=== PATIENT | female | born 1995 | race Caucasian/White ===

== ENCOUNTER 2021-04-04 09:09 | Emergency (ER) | payer OTHER, SELFPAY ==
[2021-04-04 09:21] VITALS: BP 107/68; PULSE 86; RESP 16; TEMP 37; O2SAT 99
--- NOTE | 2021-04-04 09:33 | ED.URI ---
HPI - URI/Sore Throat General Chief Complaint: Upper Respiratory Infection Stated Complaint: Sore Throat Time Seen by Provider: 04/04/21 09:33 Source: patient Mode of arrival: ambulatory Limitations: no limitations History of Present Illness HPI Narrative: Kiel Pugh is a 25 yo female no PMH who comes to [facility] with complaints of sore throat x2 days. She states she has had strep throat multiple times in the past and feels for similar. She has a feeling of ears being clogged bilaterally; denies smoking Related Data Allergies Allergy/AdvReac Type Severity Reaction Status Date / Time No Known Allergies Allergy Verified 04/04/21 09:39 Review of Systems Review of Systems: CONSTITUTIONAL: Denies fever, chills, sweats. EYES: Denies visual changes, redness, discharge. ENT: Denies rhinorrhea, mild congestion, has sore throat, but o otalgia. CARDIOVASCULAR: Denies chest pain, palpitations, edema. RESPIRATORY: Denies dyspnea, wheezing, cough GASTROINTESTINAL: Denies abdominal pain, nausea, vomiting, diarrhea. GENITOURINARY: Denies dysuria, hematuria, abnormal discharge SKIN: Denies rash or itching. NEUROLOGIC: Denies numbness, or focal weakness. PSYCHIATRIC: Denies anxiety or depression. [facility] Past Medical History Medical History No acute medical problems Family History Family History Other No acute medical problems Social History Social History (Updated 04/04/21 @ 09:35 by Lesa Ballesteros CNP) Smoking status: Never smoker Alcohol intake: current Exam Narrative: GENERAL: This is a well-nourished, well-developed patient, in mild distress. HEAD: normocephalic, atraumatic. EYES: Sclera clear/white. Vision is grossly intact. EARS: External ears normal, auditory canals erythema with bulging tympanic membranes from fluid. Hearing grossly intact. NOSE: External nose normal without nasal discharge, nares without redness, mild rhinorrhea. THROAT: Mucous membranes moist, posterior pharynx erythema. Left 1+ tonsillar swelling NECK: Neck supple, non-tender CARDIOVASCULAR: Regular rate and rhythm without murmurs, gallops, or rubs. RESPIRATORY: Clear to auscultation. Breath sounds equal bilaterally. No wheezes, rales, or rhonchi. GASTROINTESTINAL: Abdomen soft, SKIN: warm, intact with no suspicious lesions or rash, good texture and turgor. NEURO: awake, alert, and oriented to person, place and time. There were no obvious focal neurologic abnormalities. Steady gait EXTREMITIES: Normal range of motion. BACK: Nontender without deformity Course Course Emergency Course: Patient comes to [facility] with sore throat x2 days; history of getting strep Strep test done Started on prednisone, Mucinex, Zyrtec Vital Signs Vital signs: Vital Signs Temperature 98.6 F 04/04/21 09:21 Pulse Rate 86 04/04/21 09:21 Respiratory Rate 16 04/04/21 09:21 Blood Pressure 107/68 04/04/21 09:21 Pulse Oximetry 99 04/04/21 09:21 Temperature 98.6 F 04/04/21 09:21 Pulse Rate 86 04/04/21 09:21 Respiratory Rate 16 04/04/21 09:21 Blood Pressure 107/68 04/04/21 09:21 Pulse Oximetry 99 04/04/21 09:21 MDM - URI/Sore Throat Differential Diagnosis Differential diagnosis: Likely upper respiratory infection, otitis media, sinusitis, bronchitis, pharyngitis and other Lab Data Labs: Strep Screen Presumptive Negative *(Reference Range: Negative)* Strep Screen Presumptive Negative *(Reference Range: Negative)* Critical Care Time Critical Care Time Critical Care Time: No Discharge Plan Discharge Clinical Impression: Upper respiratory infection Qualifiers: URI type: unspecified URI Qualified Code(s): J06.9 - Acute upper respiratory infection, unspecified Patient Disposition: Home, Se
== END 2021-04-04 10:12 | disposition home or self-care (01) ==
PROVIDERS: Emergency Provider Nurse Practitioner
DX: J06.9 Acute upper respiratory infection, unspecified (principal)
CPT/HCPCS: 87081; 87880; 99203; G0463

== ENCOUNTER 2022-05-09 08:18 | Outpatient (CLI) | payer BC, SELFPAY ==
[2022-05-09 09:56] LABS: Basophils Percent Auto 0.2 % (0.2-1.2); Eosinophils Percent Auto 0.3 % (0-4.4); Hemoglobin 12.2 g/dL (12.0-15.0); Immature Granulocyte Absolute 0.04 K/mm3 (0.00-0.031); Immature Granulocyte Percent A 0.4 % (0-0.5); Lymphocytes Absolute Auto 1.63 K/mm3 (0.9-3.2); Lymphocytes Percent Auto 17.6 % (18.3-44.2); Mean Corpuscular HGB Conc 32.1 g/dl (32-36); Mean Corpuscular Hemoglobin 28.6 pg (26-34); Mean Platelet Volume 9.4 fl (7.4-10.4); Monocytes Absolute Auto 0.4 K/mm3 (0.1-0.6); Monocytes Percent Auto 4.4 % (2.6-8.5); Neutrophils Absolute Auto 7.1 K/mm3 (1.3-6.7); Neutrophils Percent Auto 77.1 % (45.5-73.1); Platelet Count Result 265 k/mm3 (150-375); Red Blood Count 4.27 M/mm3 (4.2-5.4); White Blood Count 9.3 K/mm3 (4.5-10.0)
[2022-05-09 10:13] LABS: Glucose 1 Hour PP 50gm Dose 118 mg/dL
[2022-05-09 10:54] LABS: HIV 1/2 Ab P24 Ag Result Negative (Negative)
[2022-05-09 11:06] LABS: Hepatitis B Surface Antigen Negative (Negative)
[2022-05-09 17:06] LABS: Rapid Plasma Reagin Non-Reactive (NonReactive)
[2022-05-12 10:01] LABS: CMV IgG Antibody <0.60 U/mL (<0.60)
== END 2022-05-09 08:19 | disposition home or self-care (01) ==
LOC: ANHLAB 08:19
PROVIDERS: Visit Provider Obstetrics & Gynecology
DX: N94.89 Other specified conditions associated with female genital organs and menstrual cycle (principal)
CPT/HCPCS: 36415; 82947; 84702; 85025; 86592; 86644; 86703; 86747; 86762; 86787; 86850; 86900; 86901; 87086; 87088; 87340; G0432

== ENCOUNTER 2022-09-13 06:37 | Outpatient (CLI) | payer BC, SELFPAY ==
[2022-09-13 08:53] LABS: Hematocrit 34.5 % (37.0-47.0); Hemoglobin 11.2 g/dL (12.0-15.0); Mean Corpuscular HGB Conc 32.5 g/dl (32-36); Mean Corpuscular Hemoglobin 29.2 pg (26-34); Mean Corpuscular Volume 90.1 fl (80-100); Mean Platelet Volume 9.6 fl (7.4-10.4); Platelet Count Result 291 k/mm3 (150-375); Red Blood Count 3.83 M/mm3 (4.2-5.4); Red Cell Distribution Width 13.2 % (11.5-14.5); White Blood Count 11.4 K/mm3 (4.5-10.0)
[2022-09-13 09:04] LABS: Glucose 1 Hour PP 50gm Dose 132 mg/dL
[2022-09-13 09:44] LABS: HIV 1/2 Ab P24 Ag Result Negative (Negative)
== END 2022-09-13 06:38 | disposition home or self-care (01) ==
LOC: ANHLAB 06:38
PROVIDERS: Visit Provider Student in an Organized Health Care Education/Training Program
DX: Z34.90 Encounter for supervision of normal pregnancy, unspecified, unspecified trimester (principal); Z3A.00 Weeks of gestation of pregnancy not specified
CPT/HCPCS: 36415; 82947; 85027; 86703; G0432

== ENCOUNTER 2022-11-24 16:46 | Inpatient (IN) | payer BC, SELFPAY ==
[2022-11-24] VITALS (12 sets, daily range): BP systolic 111–129; BP diastolic 58–90; PULSE 90–111; BMI 45.6
[2022-11-24 17:28] LABS: Basophils Percent Auto 0.3 % (0.2-1.2); Eosinophils Percent Auto 0.2 % (0-4.4); Hematocrit 33.2 % (37.0-47.0); Hemoglobin 11.1 g/dL (12.0-15.0); Immature Granulocyte Absolute 0.06 K/mm3 (0.00-0.031); Immature Granulocyte Percent A 0.5 % (0-0.5); Lymphocytes Absolute Auto 2.05 K/mm3 (0.9-3.2); Lymphocytes Percent Auto 18.5 % (18.3-44.2); Mean Corpuscular HGB Conc 33.4 g/dl (32-36); Mean Corpuscular Hemoglobin 28.6 pg (26-34); Mean Corpuscular Volume 85.6 fl (80-100); Mean Platelet Volume 10.1 fl (7.4-10.4); Monocytes Absolute Auto 0.6 K/mm3 (0.1-0.6); Monocytes Percent Auto 5.4 % (2.6-8.5); Neutrophils Absolute Auto 8.4 K/mm3 (1.3-6.7); Neutrophils Percent Auto 75.1 % (45.5-73.1); Platelet Count Result 284 k/mm3 (150-375); Red Blood Count 3.88 M/mm3 (4.2-5.4); Red Cell Distribution Width 13.7 % (11.5-14.5); White Blood Count 11.1 K/mm3 (4.5-10.0)
[2022-11-24] MEDS: DINOPROSTONE 10 MG VAG INSERT VAGINAL (18:14)
[2022-11-25] VITALS (201 sets, daily range): BP systolic 63–189; BP diastolic 37–154; PULSE 57–131; TEMP 36.2–37.3; O2SAT 90–100
--- NOTE | 2022-11-25 05:55 | WPDANESEPPF ---
Anes - Initial Pre Proc Eval Procedure: Labor epidural Date/Time: 11/25/22 05:55 Surgeon: Adama Blount MD Pre Op Diagnosis: Labor pain Pre Op Diagnosis: IOL Patient Data Age: 27 Gender: F Height: 1.55 m Weight: 109.5 kg Last Vital Signs Pulse 92 11/25/22 05:46 BP 126/57 L 11/25/22 05:46 O2 Del Method Room Air 11/24/22 18:30 Allergies Allergy/AdvReac Type Severity Reaction Status Date / Time No Known Allergies Allergy Verified 11/18/22 15:47 Home Medications Medication Instructions Recorded Confirmed Type vitamins-iron fumarate 65 1 tablet PO DAILY 04/16/22 11/24/22 History mg iron-folic acid 1 mg tablet Laboratory Tests 11/24/22 17:21 WBC 11.1 H K/mm3 (4.5-10.0) RBC 3.88 L M/mm3 (4.2-5.4) Hgb 11.1 L g/dL (12.0-15.0) Hct 33.2 L % (37.0-47.0) MCV 85.6 fl (80-100) MCH 28.6 pg (26-34) MCHC 33.4 g/dl (32-36) RDW 13.7 % (11.5-14.5) Plt Count 284 k/mm3 (150-375) MPV 10.1 fl (7.4-10.4) Immature Gran % (Auto) 0.5 % (0-0.5) Neut % (Auto) 75.1 H % (45.5-73.1) Lymph % (Auto) 18.5 % (18.3-44.2) [place] % (Auto) 5.4 % (2.6-8.5) Eos % (Auto) 0.2 % (0-4.4) Baso % (Auto) 0.3 % (0.2-1.2) Lymph # (Auto) 2.05 K/mm3 (0.9-3.2) [place] # (Auto) 0.6 K/mm3 (0.1-0.6) Eos # (Auto) 0.0 K/mm3 (0-0.3) Baso # (Auto) 0.0 K/mm3 (0.0-0.1) Abs Immat Gran (auto) 0.06 H K/mm3 (0.00-0.031) Absolute Neuts (auto) 8.4 H K/mm3 (1.3-6.7) Absolute Nucleated RBC 0.0 K/mm3 (0.0-0.012) Nucleated RBC % 0.0 % (0.0-0.2) RPR Pending Blood Type O Positive Antibody Screen Negative Patient hx anesthesia problems: none Family hx anesthesia problems: none Results Review: All pre-operative results and documents have been reviewed as part of the pre-operative evaluation. [facility] Past Medical History Medical History Encounter for IUD insertion 2020 No acute medical problems Suppression of menstruation Surgical History Surgical History History of gynecological procedure iud removal Family History Family History Other No acute medical problems Social History Social History Smoking packs per day: 1 Smoking cigarettes per day: 20.0 Years smoked: 4 Smoking pack-years: 4.00 Smoking status: Former smoker Tobacco type: cigarettes Second hand tobacco smoke exposure: No Smoking end date: 03/03/22 Alcohol intake: never Substance use: never Substance use type: does not use Lack of Transportation: No Lack of Food: Never True Current Housing: I Have Housing Concerned About Future Housing: No Difficulty Paying Gas/Electric Bills: No Difficulty Paying for Meds: No Currently Unemployed: No Education: High School Diploma/GED Difficulty w/ Childcare or Family Care: No Living arrangements: other Additional living arrangements comments: Occupation/Education: occupation Additional occupation/education comments: [employer] Gender identity (if verbalized by the patient): Female Sexual Orientation (if Verbalized by the Patient): Straight or Heterosexual Spiritual care concerns: No Anes - Eval Final PreProcedure Day of Procedure 11/25/22 05:55 Patient weight: obese ASA classification: III Anesthetic plan: proceed Anesthesia type and monitoring: regional epidural and standard monitoring Results Review: All pre-operative results and documents have been reviewed as part of the pre-operative evaluation. Informed Consent: The patient's anesthetic plan and its attendant risks and benefits were discussed with the patient/family/POA. Questions were solicited and answers provided to
[2022-11-25 06:38] LABS: Rapid Plasma Reagin Non-Reactive (NonReactive)
--- NOTE | 2022-11-25 07:22 | PM.IMHP ---
H&P: HPI History of Present Illness Date/Time: 11/25/22 07:22 Chief Complaint: induction of labor Narrative: Luh is a 27yo @ 40wks who presented overnight for elective induction of labor. She reports good movement. No VB or LOF. She has had regular PNC. Review of Systems Constitutional: Constitutional: Denies chills and Denies fever(s) Eyes: Eyes: Denies change in vision Cardiovascular: Cardiovascular: Denies chest pain Respiratory: Respiratory: Denies dyspnea Gastrointestinal: Gastrointestinal: Denies nausea and Denies vomiting PMFSH Past Medical History Medical History Encounter for IUD insertion 2020 No acute medical problems Suppression of menstruation Surgical History Surgical History History of gynecological procedure iud removal Family History Family History Other No acute medical problems Social History Social History Smoking packs per day: 1 Smoking cigarettes per day: 20.0 Years smoked: 4 Smoking pack-years: 4.00 Smoking status: Former smoker Tobacco type: cigarettes Second hand tobacco smoke exposure: No Smoking end date: 03/03/22 Alcohol intake: never Substance use: never Substance use type: does not use Lack of Transportation: No Lack of Food: Never True Current Housing: I Have Housing Concerned About Future Housing: No Difficulty Paying Gas/Electric Bills: No Difficulty Paying for Meds: No Currently Unemployed: No Education: High School Diploma/GED Difficulty w/ Childcare or Family Care: No Living arrangements: other Additional living arrangements comments: Occupation/Education: occupation Additional occupation/education comments: [employer] Gender identity (if verbalized by the patient): Female Sexual Orientation (if Verbalized by the Patient): Straight or Heterosexual Spiritual care concerns: No Meds Home Medications and Allergies Home Medications Medication Instructions Recorded Confirmed Type vitamins-iron fumarate 65 1 tablet PO DAILY 04/16/22 11/24/22 History mg iron-folic acid 1 mg tablet Allergies Allergy/AdvReac Type Severity Reaction Status Date / Time No Known Allergies Allergy Verified 11/18/22 15:47 Vital Signs Vital Signs - 24 hr 11/24/22 17:15 11/24/22 17:30 11/24/22 17:45 Temperature Pulse Rate 110 H 99 111 H Blood Pressure 120/90 120/78 128/85 Oxygen Delivery 11/24/22 18:00 11/24/22 18:20 11/24/22 18:35 Temperature Pulse Rate 98 102 H 105 H Blood Pressure 124/76 116/76 111/81 Oxygen Delivery 11/24/22 19:00 11/24/22 19:30 11/24/22 20:00 Temperature Pulse Rate 91 94 91 Blood Pressure 129/78 128/75 116/78 Oxygen Delivery 11/24/22 20:30 11/24/22 22:43 11/24/22 23:00 Temperature Pulse Rate 90 104 H 90 Blood Pressure 118/82 114/58 L 124/82 Oxygen Delivery 11/25/22 02:01 11/25/22 05:46 11/25/22 05:50 Temperature 97.1 F L Pulse Rate 87 92 Blood Pressure 115/71 126/57 L Oxygen Delivery 11/25/22 06:20 11/25/22 06:44 11/25/22 06:45 Temperature 97.8 F Pulse Rate 93 97 Blood Pressure 116/70 112/73 Oxygen Delivery 11/25/22 07:00 11/24/22 18:30 Temperature Pulse Rate 89 Blood Pressure 120/78 Oxygen Delivery Room Air Exam Const: General: cooperative, comfortable, no acute distress and obese Resp: Effort & Inspection: normal respiratory effort Cardio: Rate: regular rate GI: GI Palp: No abdominal tenderness : Other: FHT's: 135's/ mod camron/ + accels/ no decels - cat 1 TOCO: ctx's q3min Cervix: 2/50/-1 Membranes: AROM, clear 0720 Presentation: cephalic Skin: General skin exam: normal color Neuro: General: patient oriented x3 Extrem:
[2022-11-25] MEDS: LACTATED RINGERS 1,000 ML 125 ML IV CONT ×3 (07:28→17:49)
--- NOTE | 2022-11-25 07:31 | WPDHPUPDATE1 ---
History and Physical Update Update Date/Time: 11/25/22 07:31 History and Physical has been reviewed, including an updated exam of the patient. There are NO changes in the patient's condition. Risks, benefits, and alternatives have been discussed and questions answered. Patient agrees to proceed with procedure.
[2022-11-25] MEDS: OXYTOCIN 30 UNITS/NS 500 ML 30 UNITS/500 ML BAG IV CONT (07:35)
[2022-11-25] MEDS: fentaNYL CITRATE INJ (*CRX) 100 MCG/2 ML VIAL 50 MCG IV PUSH (08:38)
[2022-11-25] MEDS: ONDANSETRON INJ 4 MG/2 ML VIAL IV PUSH ×2 (09:26→20:04)
--- NOTE | 2022-11-25 12:04 | PM.OBPNLAB ---
Pain Control Date/time seen: 11/25/22 12:04 Pain control: epidural Pelvic Exam Dilation (cm): 3 Effacement (%): 80 station: -1 Amniotic membrane status: Ruptured (AROM, clear 0720) Contractions Monitor mode: Internal Contraction frequency: 2 (-3) Contraction pattern: Regular Status status: Category l Assessment and Plan Pitocin rate (mU/min): 8 Assessment: induction ongoing Plan: continuous present management
--- NOTE | 2022-11-25 17:16 | PM.OBPNLAB ---
Pain Control Date/time seen: 11/25/22 17:16 Pain control: epidural Pelvic Exam Dilation (cm): 4 (.5) Effacement (%): 90 station: -1 Amniotic membrane status: Ruptured (AROM, clear 0720) Contractions Monitor mode: Internal Contraction frequency: 2 (-3) Contraction pattern: Regular Intrauterine tone measurement: 110 Status status: Category l Assessment and Plan Pitocin rate (mU/min): 10 Assessment: induction ongoing Plan: continuous present management Comments: - inadequate contractions; asynclitic-- continue pitocin and peanut ball
--- NOTE | 2022-11-25 21:19 | PM.OBPNLAB ---
Pain Control Date/time seen: 11/25/22 21:19 Pain control: epidural Pelvic Exam Dilation (cm): 6 Effacement (%): 90 station: -1 Amniotic membrane status: Ruptured (AROM, clear 0720) Contractions Monitor mode: Internal Contraction frequency: 2 (-3) Contraction pattern: Regular Status status: Category l Assessment and Plan Pitocin rate (mU/min): 6 Assessment: active labor Plan: continuous present management
[2022-11-26] VITALS (150 sets, daily range): BP systolic 44–167; BP diastolic 20–122; PULSE 30–244; RESP 18–24; TEMP 36.7–37.4; O2SAT 64–100
[2022-11-26] MEDS: AMPICILLIN 2 GM/NS 100 ML 2 GM/100 ML BAG IVPB ×3 (01:48→18:54)
[2022-11-26] MEDS: LACTATED RINGERS 1,000 ML 125 ML IV CONT ×2 (01:54→06:48)
--- NOTE | 2022-11-26 04:44 | PM.OBPNLAB ---
Pain Control Date/time seen: 11/26/22 04:44 Pelvic Exam Dilation (cm): 10 Effacement (%): 100 station: 0 Amniotic membrane status: Ruptured (AROM, clear 0720) Contractions Monitor mode: Internal Contraction frequency: 2 (-3) Contraction pattern: Regular Status status: Category ll Assessment and Plan Plan: Comments: patient has been complete and pushing for 2.5+ hours; head is at 0 station with 2+cm of caput (unable to safely do vacuum); pt meets criteria for arrest of descent and will be going for ; risks and benefits explained in detail she also has a fever with tachycardia and meets criteria for chorio and amp/gent/clinda started
[2022-11-26] MEDS: CLINDAMYCIN 900 MG/D5W 50 ML 900 MG/50 ML PIGGYBACK 50 MG IVPB ×3 (05:10→23:30)
[2022-11-26] MEDS: GENTAMICIN SULFATE INJ 360 MG in DEXTROSE 5% 100 ML 100 MG IVPB (05:19)
[2022-11-26] MEDS: KETOROLAC 30 MG/ML VIAL (*BKC) IV PUSH ×3 (06:02→18:53)
--- NOTE | 2022-11-26 06:07 | SUR.PHASEI ---
300 ml remains in 1000 LR with 40 units pitocin.
--- NOTE | 2022-11-26 06:18 | PM.OBPRVD ---
OB - Delivery Note Procedure Delivery date: 11/26/22 Procedure: Procedures Operation Date: 11/26/22 04:45 <No data on this case meets the specified criteria> Events: Elective Induction of Labor Intrapartal Events: Arrest of Descent and Chorioamnionitis Induction method: Per Cervidil Protocol Delivery augmentation: Rupture of Membranes and Pitocin Delivery monitor: External FHT and Internal Uterine Route of delivery: Prior to decision for section, ACOG/SM labor guidelines were considered and discussed with the patient and staff. Decision made to proceed with the section.: Yes Specimen: Yes (placenta) Quantitative Blood Loss (ml): 1,500 Anesthesia type: Epidural Disposition: PACU Baby Date of : 11/26/22 Time of : 05:32 Weeks of gestation at delivery: 40 (.1) Infant gender: Male Weight (pounds): 7 Weight (ounces): 13 presentation: vertex position: Right Occiput Posterior Placenta delivery description: Expressed Cord Vessel Description: 3 Vessels and Nuchal Cord score one minute: 6 score five minutes: 9 Narrative: She was counseled on all risks and benefits in detail. She was taken to the operating room where epidural was found to be adequate. She was then prepped and draped in the normal sterile fashion. She received Gentamicin and Clindamycin (chorioamnionitis) and a time out was performed. A Pfannenstiel incision was made in the skin and carried down to the underlying fascia. The fascia was nicked on either side of the midline and the fascial incision was extended laterally and superiorly using curved Morillo scissors. The fascia was then elevated using Lady clamps and the underlying rectus muscles were dissected off the fascia, superiorly and inferiorly. The rectus muscles were then in the midline and the peritoneum was entered bluntly. Once adequate exposure was obtained, a Mobius self retractor was placed within the abdomen. A bladder flap was created. A low transverse incision was made on the lower uterine segment and clear fluid was noted. The occiput with caput was hard to deliver, but was brought to the hysterotomy. The shoulders and body then followed without complications. The cord was clamped and cut and the was handed off to the awaiting pediatric nurse. A segment of the cord was collected for cord gases. The remaining cord blood was collected for typing. With pitocin infusing, the placenta delivered with gentle traction on the cord without complications. The uterus was then cleared out of all clots and debris using a clean, moist lap. Atony was noted and Methergine and additional pitocin was given. The hysterotomy was then repaired in a running, interlocking fashion using 0 Vicryl. A second layer imbricating suture was then made using 0 Vicryl. The hysterotomy was found to be hemostatic and good uterine tone was noted. The bilateral adnexa were examined and found to be normal. The pelvis was cleared of all clots and fluid. The Mobius retractor was removed from the abdomen. The peritoneum, muscle, and fascia were examined and made hemostatic with bovie cautery. The fascia was then repaired using a 0 Vicryl suture in a running fashion. The subcutaneous tissue was then irrigated and made hemostatic with bovie cautery. The subcutaneous tissue was then reapproximated using 2-0 Vicryl. The skin was then closed using 4-0 Monocryl in a running subcuticular fashion. A Mepilex dressing was placed over the incision. Sponge, lap, needle and instrument counts were correct at the end of the procedure x2. The patient tolerated the procedure well and was taken to recovery in a stable condition. [facility] Delivery Billing Delivery Delivery: Delivery Charge
[2022-11-26] MEDS: miSOPROStol 200 MCG TABLET 800 MCG RECTAL (06:29)
--- NOTE | 2022-11-26 06:30 | SUR.PHASEI ---
Peripads changed after Cytotec inserted into rectum- QBL is 70.
[2022-11-26] MEDS: OXYTOCIN 30 UNITS/NS 500 ML 30 UNITS/500 ML BAG 125 UNITS IV CONT (06:40)
--- NOTE | 2022-11-26 08:00 | SUR.PHASEI ---
Peripad changed after clot expressed. QBL 110
--- NOTE | 2022-11-26 09:52 | OBPPTRN ---
0853 Patient transferred to post room #285 via stretcher. Support person present. Oriented to unit, room, information board, rooming in, admission packet and security measures. Patient verbalizes understanding.
[2022-11-26] MEDS: DEXTROSE 5%/0.45% SOD CHL 1,000 ML 125 ML IV CONT (11:12)
[2022-11-26 11:45] LABS: Hematocrit 26.9 % (37.0-47.0); Hemoglobin 8.9 g/dL (12.0-15.0)
[2022-11-26 11:56] LABS: Alanine Aminotransferase 88 U/L (6-35); Albumin Level 2.7 g/dL (3.5-5.1); Alkaline Phosphatase 183 U/L (38-126); Anion Gap 4 mmol/L (8-16); Aspartate Amino Transferase 79 U/L (14-36); Bilirubin,Total 0.5 mg/dL (0.2-1.3); Blood Urea Nitrogen 12 mg/dL (7-17); Calcium 7.9 mg/dL (8.4-10.2); Carbon Dioxide 23 mmol/L (22-30); Chloride 106 mmol/L (98-107); Estimated CRCL calculation 107 ml/min; Estimated Glomerular Filt Rate > 60; Glucose 129 mg/dL (65-110); Potassium 3.6 mmol/L (3.4-5.0); Sodium 133 mmol/L (137-145)
--- NOTE | 2022-11-26 15:46 | PC.NURSE ---
1400 Primary RN reported that mother is independently latching infant after using a nipple shield, then taking it off and latching effectively with no pain. [id number] Introductions were made, then consulted with patient to assess needs related to . Mother led the conversation with her?plans to feed?her infant and the?experience so far while holding her swaddled infant post primary C/S. Mother states she has used the nipple shield to get her to open and latch, then takes it off and latches to the breast. She denies pain and states it feels like sucking/tugging and denies pinching/biting sensations. Nipple shield provided to mother due to mother's choice related to her smooth nipples at this time. Mother believes her fever is causing her nipples to not stick out like they normally do. Reviewed good handwashing, cleaning the nipple shield and application. Discussed with mom the nipple shield precautions, possible complications associated with the risks and benefits. Reviewed practicing with a nipple shield, then without and how to protect the milk supply and production. Mom demonstrates understanding of how to apply the nipple shield correctly. Mom voiced understanding of the importance of hand expression, nipple stimulation and initiating a pumping schedule if continues to nurse with the shield. Resources provided for inpatient and outpatient services. Mother voiced understanding of information and will call if there is a request for assistance. Reported to the primary RN.
[2022-11-26] MEDS: DOCUSATE SODIUM 100 MG CAPSULE PO (16:55)
[2022-11-26] MEDS: LIDOCAINE 5% PATCH 1 PATCH TRANSDERM (16:56)
[2022-11-26] MEDS: ACETAMINOPHEN 325 MG TABLET 650 MG PO (21:39)
[2022-11-27] VITALS: BP 91/53; PULSE 88; RESP 18; TEMP 36.3; O2SAT 99
[2022-11-27] MEDS: AMPICILLIN 2 GM/NS 100 ML 2 GM/100 ML BAG IVPB ×2 (01:27→07:55)
[2022-11-27] MEDS: IBUPROFEN 600 MG TABLET PO ×4 (02:56→21:51)
[2022-11-27] MEDS: HYDROcodone/acetaminophen (*CRX) 5-325 MG TABLET 1 TAB PO ×2 (02:57→08:01)
[2022-11-27 03:00] VITALS: BP 97/62; PULSE 96; RESP 18; TEMP 36.6; O2SAT 96
[2022-11-27 05:05] LABS: Basophils Percent Auto 0.2 % (0.2-1.2); Eosinophils Percent Auto 0.2 % (0-4.4); Hematocrit 25.9 % (37.0-47.0); Immature Granulocyte Absolute 0.11 K/mm3 (0.00-0.031); Immature Granulocyte Percent A 0.7 % (0-0.5); Lymphocytes Absolute Auto 1.72 K/mm3 (0.9-3.2); Lymphocytes Percent Auto 10.2 % (18.3-44.2); Mean Corpuscular HGB Conc 30.9 g/dl (32-36); Mean Corpuscular Hemoglobin 28.1 pg (26-34); Mean Corpuscular Volume 90.9 fl (80-100); Mean Platelet Volume 10.4 fl (7.4-10.4); Monocytes Absolute Auto 1.1 K/mm3 (0.1-0.6); Monocytes Percent Auto 6.3 % (2.6-8.5); Neutrophils Absolute Auto 13.9 K/mm3 (1.3-6.7); Neutrophils Percent Auto 82.4 % (45.5-73.1); Platelet Count Result 220 k/mm3 (150-375); Red Blood Count 2.85 M/mm3 (4.2-5.4); White Blood Count 16.9 K/mm3 (4.5-10.0)
--- NOTE | 2022-11-27 07:09 | PM.OBPNVD ---
OB - PN: Subj Subjective Date/time seen: 11/27/22 07:09 Narrative: POD#1 Luh reports doing well today. Her bleeding is county judge. Her pain is controlled. She is tolerating regular diet, voiding, and has ambulated without issues. She has not passed gas. She denies any issues with her incision. She is breast feeding. She would like her son circumcised. She denies overt symptoms of anemia. OB - PN: Obj Data Labs 11/27/22 04:43 11/26/22 11:34 Labs: Laboratory Results - last 24 hr 11/26/22 11/27/22 11:34 04:43 WBC 16.9 H RBC 2.85 L Hgb 8.9 L 8.0 L Hct 26.9 L 25.9 L MCV 90.9 D MCH 28.1 MCHC 30.9 L RDW 14.0 Plt Count 220 MPV 10.4 Immature Gran % (Auto) 0.7 H Neut % (Auto) 82.4 H Lymph % (Auto) 10.2 L [place] % (Auto) 6.3 Eos % (Auto) 0.2 Baso % (Auto) 0.2 Lymph # (Auto) 1.72 [place] # (Auto) 1.1 H Eos # (Auto) 0.0 Baso # (Auto) 0.0 Abs Immat Gran (auto) 0.11 H Absolute Neuts (auto) 13.9 H Absolute Nucleated RBC 0.0 Nucleated RBC % 0.0 Sodium 133 L Potassium 3.6 Chloride 106 Carbon Dioxide 23 Anion Gap 4 L BUN 12 Creatinine 0.80 Estim Creat Clear Calc 107 Estimated GFR > 60 Glucose 129 H Calcium 7.9 L Total Bilirubin 0.5 AST 79 H ALT 88 H Alkaline Phosphatase 183 H Total Protein 6.0 L Albumin 2.7 L OB - PN A/P Assessment and Plan (1) Delivery by section: Status: Acute (2) Anemia: Code(s): D64.9 - Anemia, unspecified Status: Acute Plan day: 1 Plan: routine care Time Spent With Patient Time: Total time spent is greater than 50% in coordination of care (as documented) at patient's floor/unit and/or counseling patient: Review of Systems Constitutional: Constitutional: Denies chills, Denies fever(s) and Denies headache(s) Eyes: Eyes: Denies change in vision ENT: Denies dizziness and Denies headache(s) Cardiovascular: Cardiovascular: Denies chest pain, Denies palpitations and Denies dyspnea Respiratory: Respiratory: Denies cough and Denies dyspnea Gastrointestinal: Gastrointestinal: Denies nausea and Denies vomiting Genitourinary: Comments: normal bleeding Neurologic: Denies dizziness and Denies headache(s) Endocrine: Endocrine: Denies palpitations Exam Const: General: cooperative, comfortable, no acute distress and obese Orientation/consciousness: patient oriented x3 Resp: Effort & Inspection: normal respiratory effort Auscultation: clear to auscultation bilaterally Cardio: Rate: regular rate GI: Inspection: non-distended and incision (covered with clean dressing) GI Palp: Yes abdominal tenderness (appropriate) and Yes Soft to palpation Auscultation: normal bowel sounds : Other: fundus firm Skin: General skin exam: normal color Neuro: General: patient oriented x3 Extrem: General: normal to inspection Psych: Appearance: grossly normal Affect: normal affect Attitude: cooperative
--- NOTE | 2022-11-27 07:47 | WPDANLDPN2 ---
Anes-Prog Note L&D Date/Time: 11/27/22 07:47 Comfortable throughout: labor, delivery and section Neuraxial method: spinal Epidural/Spinal procedure site: clean & non-tender Neuro status: Neuro function grossly intact. Cardiovascular status: normal Respiratory status: normal Airway patency: baseline Mental status: baseline Post-Op hydration status: normal Vital Signs: Last Vital Signs Temp 36.6 C 11/27/22 03:00 Pulse 96 11/27/22 03:00 Resp 18 11/27/22 03:00 BP 97/62 L 11/27/22 03:00 Pulse Ox 96 11/27/22 03:00 O2 Del Method Room Air 11/27/22 03:00 Pain score (VAS): 1 I/O: Intake & Output 11/26/22 11/26/22 11/27/22 15:59 23:59 07:59 Intake Total 2270 150 Output Total 380 2700 600 Balance -380 -430 -450 Post-procedural complaints: none Patient feedback: Patient satisfied with anesthetic care.
--- NOTE | 2022-11-27 07:48 | WPDANLDNPN2 ---
Anes-Prog Note L&D-Neuraxial Date/Time: 11/27/22 07:48 Neuraxial medications: intrathecal PF morphine Opiod-related complaints: none Patient feedback: Patient satisfied with post-operative pain management.
[2022-11-27 07:55] VITALS: BP 100/57; PULSE 82; RESP 16; TEMP 36.4; O2SAT 100
[2022-11-27] MEDS: DOCUSATE SODIUM 100 MG CAPSULE PO ×2 (08:00→16:01)
[2022-11-27] MEDS: POLYSACCHARIDE IRON COMPLEX 150 MG CAPSULE PO ×2 (08:00→16:00)
[2022-11-27] MEDS: MULTIVIT/MIN/PREN/FOL AC/IRON TABLET 1 TAB PO (08:00)
[2022-11-27] MEDS: LANOLIN (LANSINOH) 7.5 GM CREAM 1 APPLIC TOPICAL (08:03)
[2022-11-27] MEDS: HYDROcodone/acetaminophen (*CRX) 10-325 MG TABLET 1 TAB PO ×3 (11:49→21:52)
[2022-11-27 21:38] VITALS: BP 120/74; PULSE 107; RESP 18; TEMP 36.7; O2SAT 99
[2022-11-28] MEDS: IBUPROFEN 600 MG TABLET PO ×2 (05:33→12:46)
[2022-11-28] MEDS: HYDROcodone/acetaminophen (*CRX) 10-325 MG TABLET 1 TAB PO (05:34)
[2022-11-28] MEDS: MULTIVIT/MIN/PREN/FOL AC/IRON TABLET 1 TAB PO (08:30)
[2022-11-28] MEDS: POLYSACCHARIDE IRON COMPLEX 150 MG CAPSULE PO (08:30)
[2022-11-28] MEDS: DOCUSATE SODIUM 100 MG CAPSULE PO (08:30)
[2022-11-28 10:15] VITALS: BP 136/74; PULSE 100; RESP 18; TEMP 36.3; O2SAT 100
--- NOTE | 2022-11-28 11:44 | PM.OBDSVD ---
DS: Admitting Diagnosis Discharge Date 11/28/22 Admitting Diagnosis induction of labor DS: Discharge Diagnosis Discharge Diagnosis (1) S/P section: Code(s): Z98.891 - History of uterine scar from previous surgery Status: Acute (2) Anemia: Code(s): D64.9 - Anemia, unspecified Status: Acute (3) Arrest of descent, delivered, current hospitalization: Code(s): O62.1 - Secondary uterine inertia Status: Acute (4) Chorioamnionitis: Code(s): O41.1290 - Chorioamnionitis, unspecified trimester, not applicable or unspecified Status: Acute OB - DS: Summary OB Procedures : Ultrasound OB Procedures Intrapartum: low cervical, transverse OB Procedures: : Antibiotics Peripartum Data Delivery Method: Section Procedures: Procedures Operation Date: 11/26/22 04:45 Actual Procedure Side Surgeon p Section Not Applicable Danica Nuñez MD complications: none 1: Gender: Male Disposition of : home Status at Discharge Functional status at discharge: independent ambulation Overall status at discharge: patient is back to baseline Time Spent with Patient Time attestation: Total time spent providing and/or coordinating discharge services: Time spent: Less than 30 minutes Exam Const: General: cooperative, comfortable, no acute distress and obese Orientation/consciousness: patient oriented x3 Resp: Effort & Inspection: normal respiratory effort Auscultation: clear to auscultation bilaterally Cardio: Rate: regular rate GI: Inspection: non-distended and incision (covered with clean dressing) GI Palp: No abdominal tenderness and Yes Soft to palpation Auscultation: normal bowel sounds : Other: fundus firm Skin: General skin exam: normal color Neuro: General: patient oriented x3 Extrem: General: normal to inspection Psych: Appearance: grossly normal Affect: normal affect Attitude: cooperative DS: Data Data Completed and Pending Completed studies during hospitalization: Pending at discharge 11/26/22 05:33 Surgical [PTH] Routine Pending studies at discharge: Pending at discharge 11/26/22 05:33 Surgical [PTH] Routine Discharge Plan Discharge Attending physician on discharge: Danica Nuñez Discharging Clinician: Danica Nuñez Anticipated Discharge Date/Time: 11/29/22 10:00 Patient Disposition: Home, Self-Care Activity: may shower, no straining, may drive after 2 weeks and pelvic rest Diet: regular Discharge Instructions: remove dressing if the sponge gets wet, or by 12/02/22 no heavy lifting >15lbs for 6 weeks Patient Instructions: Antibiotic Form Stand Alone Forms: General Discharge Information Follow-up/Referrals: Danica Nuñez MD [Physician] - 4 Weeks Discharge Medications: New hydrocodone-acetaminophen 5-325 mg tablet 1 tablet PO Q3H PRN (Reason: pain) Qty: 30 0RF ibuprofen 800 mg tablet 800 mg PO TID Qty: 30 0RF ferrous sulfate 325 mg (65 mg iron) tablet 325 mg PO BID Qty: 120 1RF docusate sodium [Colace] 100 mg capsule 100 mg PO BID Qty: 120 1RF acetaminophen 500 mg tablet 1,000 mg PO TID PRN (Reason: pain) Qty: 60 0RF Continued vit-iron fum-folic ac 65 mg iron- 1 mg tablet 1 tablet PO DAILY Date of admission: 11/24/22 16:46 Primary Care Provider: PHYSICIAN,RETORT PRE COOKER Admitting Provider: Adama Blount Attending physician on admission: Adama Blount Condition: Stable
[2022-11-28] MEDS: HYDROcodone/acetaminophen (*CRX) 5-325 MG TABLET 1 TAB PO (12:46)
[2022-11-29 12:37] VITALS: BP 121/63; PULSE 107; RESP 18; TEMP 36.7; O2SAT 100
== END 2022-11-28 14:05 | disposition home or self-care (01) | DRG 786 ==
LOC: ANHLDR 16:55 → ANHOB2 11-27 12:11 → ANHLDR 12-01 10:50 → ANHOB2 12-01 10:50
PROVIDERS: Admitting Provider Obstetrics & Gynecology; Visit Provider Obstetrics & Gynecology
PROC: 10D00Z1 Extraction of Products of Conception, Low, Open Approach (ICD-10-PCS; CPT 59514; principal; 2022-11-26 04:45)
DX: O62.1 Secondary uterine inertia (principal); O41.1230 Chorioamnionitis, third trimester, not applicable or unspecified; O75.2 Pyrexia during labor, not elsewhere classified; Z87.891 Personal history of nicotine dependence; O69.81X0 Labor and delivery complicated by cord around neck, without compression, not applicable or unspecified; O99.02 Anemia complicating childbirth; Z3A.40 40 weeks gestation of pregnancy; Z37.0 Single live birth; O42.92 Full-term premature rupture of membranes, unspecified as to length of time between rupture and onset of labor
CPT/HCPCS: 36415; 80053; 85014; 85018; 85025; 86592; 86850; 86900; 86901; 88307; A9270; J0290; J1580; J1885; J2210; J2250; J2274; J2405; J2590; J2795; J3010; J7120

== ENCOUNTER 2023-01-27 07:24 | Outpatient (CLI) | payer BC, SELFPAY ==
[2023-01-27 08:21] LABS: Beta HCG Quantitative < 2.39 mIU/ML
== END 2023-01-27 07:25 | disposition home or self-care (01) ==
PROVIDERS: Visit Provider Obstetrics & Gynecology
DX: N92.6 Irregular menstruation, unspecified (principal)
CPT/HCPCS: 36415; 84702

== ENCOUNTER 2025-01-09 14:27 | Observation (INO) | payer BC, SELFPAY ==
[2025-01-09 14:45] VITALS: BMI 47.2
--- OUTSIDE RECORDS SUMMARY | 2025-01-09 14:46 | XMS_ITS | Data Portability ---
Author Organization [facility] Address [address] [place] [address] Care Team Providers Care Cpas Name Role Phone CASTILLO, STEPH Primary Care Provider Assessment Encounter Date Assessment Date Assessment LastModified by Organization Details LastModified Time 01/05/2025 01/05/2025 Patient is ___weeks . Discussed plan. [email or web address] Not available 01/05/2025 15:41:17 Plan of Treatment Reminders Order Date Submit Date Provider Last Modified By Organization Details Last Modified Time Details Appointments U/S OB BPP 2024 02:00P M ULTRASOUND Not available Not available Not available NST 2024 02:30P M NST SCHEDULE Not available Not available Not available OB ROUTINE 2024 03:00P Gemma MCCULLOUGH MD Not available Not available Not available U/S OB BPP 2024 02:00P M ULTRASOUND Not available Not available Not available NST 2024 02:30P M NST SCHEDULE Not available Not available Not available OB ROUTINE 2024 03:15P Gemma MCCULLOUGH MD Not available Not available Not available U/S OB BPP 2024 03:00P M ULTRASOUND Not available Not available Not available NST 2024 03:30P M NST SCHEDULE Not available Not available Not available OB ROUTINE 2024 04:00P Gemma MCCULLOUGH MD Not available Not available Not available U/S OB BPP 2024 02:00P M ULTRASOUND Not available Not available Not available NST 2024 02:30P M NST SCHEDULE Not available Not available Not available OB ROUTINE 2024 03:15P Gemma MCCULLOUGH MD Not available Not available Not available SURG CSectio n 2024 07:30A Gemma MCCULLOUGH MD Not available Not available Not available SURG POST OP 2024 01:15P Gemma MCCULLOUGH MD Not available Not available Not available Lab None recorde d. Referral None recorde d. Procedures None recorde d. Surgeries None recorde d. Imaging non-str ess test 2024 025 [email or web address], [address], [place], [address], 01/07/2025 09:16:06 US, obstetr ic, biophys ical profile + non-str ess test 2024 025 [email or web address] [place], [address], [place], [address], 01/05/2025 20:41:29 non-str ess test 2024 [email or web address], [address], [place], [address], 01/02/2025 21:40:18 US, obstetr ic, biophys ical profile + non-str ess test 2024 025 [email or web address] [place] [facility] [address], [place], [address], 12/29/2024 15:58:27 Medication Orders None recorde d. Patient TargetsNo targets recorded. Patient InstructionsNo instructions recorded. Reason for Referral None Reported. Results Created Date Observation Date Name Description Value Unit Range Abnormal Flag Note LastModifiedBy Organization Detail LastModifiedTime 11/30/19 25 11/28/2024 US, obste tric, follo w-up No observ ation record ed. [email or web address] [facility] [address] [place], [address], 01/03/2025 22:38:52 12/28/19 25 12/27/2024 imagi ng/di agnos tic resul t No observ ation record ed. [email or web address] [facility] [address] [place], [address], 01/03/2025 21:01:21 12/28/19 25 12/27/2024 US, obste tric, follo w-up No observ ation record ed. [facility] [address] [place], [address], 01/03/2025 21:27:40 12/30/19 25 12/29/2024 US, obste tric, bioph ysica l profi le + non-s tress test No observ ation record ed. [email or web address] [place] [address], [place], [address], 12/29/2024 16:58:13 12/30/19 25 12/29/2024 US, obste tric, bioph ysica l profi le + non-s tress test No observ ation record ed. LOLIS [address] [facility], [place], [address], 12/29/2024 16:02:43 01/03/20 25 01/02/2025 non-s tress test No observ ation record ed. [email or web address] [place] [address], [place], [address], 01/02/2025 09:11:47 01/06/20 25 01/05/2025 US, obste tric, bioph ysica l profi le + non-s tress test No observ ation record ed. [email or web address] [place] [address], [place], [address], 01/05/2025 16:13:51 01/06/2001/05/2025 US, obste tric, bioph ysica l profi le + non-s tress test No observ ation record ed. [email or web address] [address], [place], [address], 01/08/2025 21:33:09 01/06/20 25 01/05/2025 non-s tress test No observ ation record ed. [email or web address] [place] [address], [place], [address], 01/05/2025 20:52:57 Result Notes None recorded. Problems Name Problem SNOMED Code Status Onset Date Resolution Date Notes Provider Name and Address Organization Details Recorded Time 94456234 Active [address] [facility], [facility] 16:21:08 Female steriliza tion Active at the time of Keon Mccullough MD [address], [place], [address], [facility] 16:39:59 Deliverie s by 166781155 Active TO HAVE REPEAT Keon Mccullough MD [address], [place], [address], [facility] 16:40:26 Abnormal umbilical cord 64854832 Active TWO-VESSE L Keon Mccullough MD [address], [place], [address], [facility] 16:22:38 Splenic cyst 84189029 Active - [facility] [place] [facility] 10/04/24 Level II us and consult Scheduled [facility] 10/31 US 11/29- [facility], okay to deliver at [place]. Baby to f/u 2-4 wks after delivery Katrin farrell, [facility] 17:01:44 Anemia 778132825 Active 2024 slo fe daily Fang Jamison null, [facility] 13:29:18 Problem Notes None recorded. Procedures Surgical History Date Name Laterality Status Provider Name and Address Organization Details Recorded Time 03/29/20 24 IUD Removal completed THANH MUHAMMAD MD [address], [place], [address], [facility] 03/29/2024 16:23:39 02/28/20 23 Date of Last Pap Smear completed [facility] 03/29/2024 15:41:48 02/28/20 23 extraction of wisdom tooth completed [facility] 03/29/2024 15:43:46 11/27/19 23 Caesarean Section completed [facility] 03/29/2024 15:25:58 Imaging Results None recorded. Procedure Notes None recorded. Medical Equipment None Reported. Allergies No known drug allergies Medications Name Sig Start Date Stop Date Status Note LastModified by Organization Details LastModified Time prednisone 20 mg tablet TAKE 2 TABLETS BY MOUTH DAILY FOR 5 DAYS 03/29 completed Not Available Not Available Not Available phentermine 15 mg capsule TAKE 1 CAPSULE BY MOUTH EVERY DAY 03/29 completed Not Available Not Available Not Available phentermine 30 mg capsule TAKE 1 CAPSULE BY MOUTH EVERY DAY 03/29 completed Not Available Not Available Not Available pantoprazole 40 mg tablet,delay ed release Take 1 tablet every day by oral route. active Not Available Not Available No t Available phentermine 37.5 mg capsule TAKE 1 CAPSULE BY MOUTH EVERY DAY 03/29 completed Not Available Not Available Not Available amoxicillin 875 mg-potassium clavulanate 125 mg tablet TAKE 1 TABLET BY MOUTH TWICE DAILY FOR 10 DAYS 03/29 completed Not Available Not Available Not Available + DHA active Not Available Not Available Not Available Shayla 1.5 mg-30 mcg tablet TAKE 1 TABLET BY MOUTH DAILY 07/13 completed Not Available Not Available Not Available Vitals Date Recorded Body height Body mass index (BMI) Body weight Body height Systolic And Diastolic Provider Name and Address Organization Details Last Updated DateTime 12/29/2024 154.94 cm 46.9 kg/m2 943979.9 1 g 154.94 cm 105/71 mm[Hg] Sherry [facility] 16:08:49 Date Recorded Body weight Systolic And Diastolic Provider Name and Address Organization Details Last Updated DateTime 01/05/2025 338437.8284 g 106/70 mm[Hg] [facility] 01/05/2025 15:42:17 Social History Question Answer Notes LastModified by Organizat ion Details LastModified Time Tobacco Smoking Status Never Smoker Alissa farrell, [facility] 03/29/2024 15:43:20 Are You Blind Or Do You Have Difficulty Seeing? No [email or web address] Information n ot available 03/29/2024 What Is Your Level Of Caffeine Consumption? Moderate [email or web address] Information not available 03/29/2024 How Much Tobacco Do You Chew? None [email or web address] Information not available 03/29/2024 In The 14 Days Before Symptom Onset, Have You Had Close Contact With A Laboratory-confirm ed COVID-19 While That Case Was Ill? No [email or web address] Information n ot available 03/29/2024 In The 14 Days Before Symptom Onset, Have You Had Close Contact With A Person Who Is Under Investigation For COVID-19 While That Person Was Ill? No [email or web address] Information not available 03/29/2024 Have You Been To An Area Known To Be High Risk For COVID-19? No [email or web address] Information not available 03/29/2024 Are You Deaf Or Do You Have Serious Difficulty Hearing? No [email or web address] Information not available 03/29/2024 What Type Of Diet Are You Following? REGULAR [email or web address] Information n ot available 03/29/2024 What Is The Highest Grade Or Level Of School You Have Completed Or The Highest Degree You Have Received? [id number] [email or web address] Information not available 03/29/2024 Are There Any Guns Present In Your Home? No [email or web address] Information not available 03/29/2024 Do You Use Protection During Sex? Always [email or web address] Information not available 03/29/2024 Do You Use Your Seat Belt Or Car Seat Routinely? Yes [email or web address] Information not available 03/29/2024 Do You Have Smoke And Carbon Monoxide Detectors In Your Home? Yes [email or web address] Information not available 03/29/2024 How Much Tobacco Do You Smoke? No [email or web address] Information not available 03/29/2024 Do You Use Sunscreen Routinely? No [email or web address] Information not available 03/29/2024 Have You Used IV Drugs? No [email or web address] Information not available 03/29/2024 Do You Have Difficulty Walking Or Climbing Stairs? No [email or web address] Information not available 03/29/2024 Sex: Unknown Functional Status Question Answer Note LastModified by Organizat ion Details LastModified Time Do you use any illicit or recreational drugs? No [email or web address] Information not available 03/29/2024 What is your level of alcohol consumption? None [email or web address] Information not available 03/29/2024 Are you able to walk? YESWOREST [email or web address] Information not available 03/29/2024 Are you able to care for yourself? Yes [email or web address] Information not available 03/29/2024 What is your occupation? [employer] [email or web address] Information not available 03/29/2024 Do you have difficulty dressing or bathing? No Information not available 03/29/2024 What is your exercise level? Occasional Information not available 03/29/2024 Mental Status Question Answer Note LastModified by Organization D etails LastModified Time Do you feel stressed (tense, restless, nervous, or anxious, or unable to sleep at night)? [id number] [email or web address] Information not available 03/29/2024 Family History Relationship Description Onset Age of this Age Resolved Age Notes LastModified by Organization Details LastModified Time Unspecified Relation Family history unknown [email or web address] Not available 2023 15:25:57 Medical History Condition Response Allergies (Food, seasonal, environmental ) N Other N Blood Transfusion N Drug/Latex Allergies/Reactions N Breast Cancer N Dermatologic Disorders N Lung Disease N Defects or Inherited Disease N Breast Problem N Gestational Diabetes N Hematologic disorders N Anesthesia Complications N History of STI N Deep Vein Thrombosis N Polycystic ovary syndrome N Anxiety Disorder N Autoimmune disease N Arthritis N Infertility N Polyps N Acid Reflux (GERD) N History of abnormal pap N Cancer N Stroke N Varicosities N Neurologic/Epilepsy N Endometriosis N High Cholesterol N Headaches N Fibromyalgia N Kidney Disease N Heart Problems N Kidney or Bladder Problems N Thyroid Problems N GI Problems N Eating Disorder N Anemia N Art (IVF or FET) N Psychiatric Illness N Ovarian Cancer N Diabetes N Pulmonary (TB, Asthma) N Hepatitis/Liver Disease N No Past Medical History N Eczema N Urinary Tract Infection N Abuse/Domestic Violence N Asthma N Trauma/Violence N Depression/ depression N Heart Disease N Pre-Eclampsia N Hypertension N Osteoporosis N Thrombophilias N Gynecological History Statement/Question Response Abnormal Pap N Flow Light Date of LMP 05/06/2024 N On BCP's at Conception? N STIs/STDs N Was last menstrual period normal Y HPV Vaccine N Duration of Flow (days) 4 Current Control Method Age at First Child 28 Date of control 02/12/2023 Are cycles usually normal Y Frequency of Cycle (Q days) 28 Sexually Active? Y N/A Menses Monthly Y Age of first menstrual cycle 15 Date of Last Pap Smear 02/27/2023 Sexual Problems? N LMP Definite N Obstetrics History GPAL:G 3 P 1 0 1 1 Type Value Full Term 1 Induced 1 Living 1 Total 3 Past Encounters Encounter ID Performer Location Encounter Start Date Encounter Closed Date Diagnosis/Indication Diagnosis SNOMED-CT Code Diagnosis ICD10 Code Diagnosis Note [id number] THANH MUHAMMAD MD [place] [address] [address] 03/29/2024 15:19:53 03/29/2024 16:26:10 Removal of intrauterine contraceptive device 8277978256 Z30.432 - IUD removed without issue- discussed quick return of menses and fertility- if periods are irregular for more than 6 months, consider evaluation Reproducti ve care management 928047085 Z31.9 - uncomplica erica aside from PLTCS for failure to descend- discussed optimal interpregn andrzej interval of 18 months- continue PNV- patient to call clinic with +UPT [id number] Keon Mccullough MD [place] [address],[place] [address] 07/11/2024 16:37:47 07/11/2024 17:12:44 [id number] Keon Mccullough MD [place] [address] [address] 07/13/2024 15:12:51 07/13/2024 16:20:18 Amenorrhea 84652007 N91.2 this patient is a 28-year-ol d female who presents for amenorrhea . She is a positive test. Ultrasound revealed a 1st trimester gestation. Patient has no complaints . We talked about early care. Talked about genetic screening. We talked about her ultrasound results. We talked about the 12 week ultrasound that has genetic screening components . She was given recommenda tions on exercise, diet, over-the-c ounter medication s. We reviewed her obstetric history. We reviewed her medical history. We reviewed her social history. She will begin routine care at her next visit. previous , wants repeat, wants tubal [id number] Keon Mccullough MD [place] [address] [address] 08/03/2024 15:12:56 08/03/2024 16:18:54 screening 863845976 Z36.82 Z3A.12 [id number] Keon Mccullough MD [place] [address] [address] 08/03/2024 16:14:13 08/03/2024 16:47:08 Routine care 082165309 Z34.90 [id number] Keon Mccullough MD [place] [address] [address] 08/31/2024 15:44:06 09/01/2024 05:50:41 Gastroesophageal reflux disease 018846916 K21.9 Routine an tenatal care 918647451 Z34.90 [id number] MD Anne Marie Queen [address] [address] 09/28/2024 14:23:25 09/28/2024 15:41:32 screening for malformation 686913118 Z36.3 Z3A.20 [id number] Keon Mccullough MD [place] [address] [address] 09/28/2024 14:23:44 09/28/2024 16:29:34 Routine care 156972943 Z34.90 [id number] MD Anne Marie Queen [address] [address] 10/26/2024 15:57:51 10/26/2024 16:53:38 care status 910068598 Z34.82 [id number] Keon Mccullough MD [place] [address] [address] 11/16/2024 15:32:11 11/16/2024 16:58:22 care status 758274012 Z34.83 [id number] Keon Mccullough MD [place] [address] [address] 12/02/2024 15:32:39 12/05/2024 08:56:57 section following previous section 659072110 O34.219 [id number] THANH MUHAMMAD MD [place] [address] [address] 12/19/2024 15:35:31 12/19/2024 16:20:59 Abnormal umbilical cord 69619259 Q27.9 Deliveries by [id number] O82 Body mass index 40+ - severely obese 969786330 E66.01 Gestation period, 32 weeks 1540296 Z3A.32 [id number] MD Anne Marie CHINCHILLA [address] [address] 12/29/2024 14:47:44 12/29/2024 15:47:12 Single umbilical artery 792121550 O09.899 Z3A.33 [id number] MD Anne Marie CHINCHILLA [address] [address] 12/29/2024 14:48:03 01/02/2025 09:35:48 Obesity 914322102 O99.210 [id number] MD Anne Marie CHINCHILLA [address] [address] 12/29/2024 14:48:25 12/29/2024 16:28:44 Abnormal umbilical cord 78272967 Q27.9 - 2 vessel cord Deliveries by [id number] O82 - scheduled with salpingect nela Gestation period, 33 weeks 61220560 Z3A.33 [id number] Keon Mccullough MD [place] [address] [address] 01/05/2025 14:46:46 01/05/2025 15:15:29 Maternal obesity complicating , childbirth and the puerperium, antepartum 6131611120 07 O99.210 O09.899 Z3A.34 [id number] Keon Mccullough MD [place] [address] [address] 01/05/2025 14:49:12 01/06/2025 08:58:43 Obesity 613397161 O99.210 [id number] Keon Mccullough MD [place] [address] [address] 01/05/2025 14:49:30 01/05/2025 16:58:29 care status 190912712 Z34.83 Health Concerns Section Related Observation LastModified by Organization Detai ls LastModified Time None Recorded Concern Status LastModified by Organization Details LastModified Time None Recorded Advance Directives Directive None Recorded Payers Insurance Date Sequence Insurance Name Policy Number Policy Valente Covered Member ID Valente Member ID Guarantor Name 07/11/2024 1 [place] [place] [id number] Luh Muhammad [id number] Luh Muhammad 01/07/2025 1 [facility] [id number] Jermaine Muhammad [id number] Luh Muhammad OBGyn Episode Ob Episode Information Episode Created Date Number of Fetuses Patient Bloodtype Patient rh Status Prepregnancy Weight lbs Domestic Partner Domestic Partner Phone Father Name Telecommunications Equipment Installer Status 08/03/19 25 1 O Positive CHandle r OPEN Fetus Data First Name Last Name Admitted to NICU Weight (g) Sex Living Outcome Pediatric Complications Fetus ID Race Codes Race Delivery Type [id number] Problems Problem Notes NIPT low risk - redraw reque sted for 22q microdeletion Problem Name Start Date End Date Resolution Snomed Code Not e Anemia 11/18/2024 391000448 slo fe da gutierrez Splenic cyst 05000085 - Referral faxed to [facility] 09/28/24 pt scheduled [facility] 10/04/24 Level II us and consultScheduled [facility] 10/31 US/- [facility] called results with L renal cyst, okay to deliver at [place]. Baby to f/u 2-4 wks after delivery Deliveries by [id number] TO HAVE REPEAT Abnormal umbilical cord 06846618 TWO-VESSEL Female sterilization 57397970 at the time of Tommy Calculation Initial Tommy Date Initial Exam Date Initial Exam Provider Initial Ultrasound Date Last Menstrual Period Date Ultra Sound Weeks Gestation 08/03/2024 07/11/2024 05/06/2024 9 Eighteen To Twenty Week Tommy Update Ultra Sound Date Fundal Height At Umbil Quickening Date Ultra Sound Latest Weeks Gestation Final Tommy Confirmed By Final Tommy Confirmed Date Final Tommy Date Ultra Sound Latest Days Gestation 0 [email or web address] 08/03/2024 02/11/20 25 0 Pre- Flowsheet Flowsheet Date 08/03/2024 Moraes Score Blood Edema Fundus Height Fundus Units Glucose Ketones Leukocytes Nitrite Labor Signs Protein Cervic Dilation Cervic Effacement Cervic Station Type Weight in lbs Pre/Post Dialysis Refused Weight 236.115441522703 BP Diastolic BP Location Tested BP Systolic BP Type 82 L arm 120 sitting Fetus Heart Rate Present Fetus Movement A No Comments this patient is a 28-year-ol d MULTIparous female at 12 weeks' gestation who presents for initial care. She has a history of term births. Her medical, surgical, obstetric history is unremarkable. She is vaccinated. She was given precautions recommendations for . We talked about vaccines in . Talked about care in detail. She is having genetic testing. She had a normal 12 week ultrasound. To begin routine care. Flowsheet Date 08/31/2024 Moraes Score Blood Edema Fundus Height Fundus Units Glucose Ketones Leukocytes Nitrite Labor Signs Protein Cervic Dilation Cervic Effacement Cervic Station Type Weight in lbs Pre/Post Dialysis Refused 236.645654936589 BP Diastolic BP Location Tested BP Systolic BP Type 70 L arm 107 sitting Fetus Heart Rate Present A 145 Fetus Movement Comments no complaints, no problems, routine care, no contractions, no vaginal bleeding, no loss of fluid, no cramping Flowsheet Date 09/28/2024 Moraes Score Blood Edema Fundus Height Fundus Units Glucose Ketones Leukocytes Nitrite Labor Signs Protein Cervic Dilation Cervic Effacement Cervic Station Type Weight in lbs Pre/Post Dialysis Refused BP Diastolic BP Location Tested BP Systolic BP Type Fetus Heart Rate Present Fetus Movement Comments Flowsheet Date 09/28/2024 Moraes Score Blood Edema Fundus Height Fundus Units Glucose Ketones Leukocytes Nitrite Labor Signs Protein Cervic Dilation Cervic Effacement Cervic Station neg none Type Weight in lbs Pre/Post Dialysis Refused Weight 236.746310100521 BP Diastolic BP Location Tested BP Systolic BP Type 83 L arm 122 sitting Fetus Heart Rate Present Fetus Movement A Yes Comments there appears to be a spleni c cyst and two-vessel cord on anatomy scan today. To have an MFM consult. Otherwise - no complaints, no problems, routine care, no contractions, no vaginal bleeding, no loss of fluid, no cramping Flowsheet Date 10/26/2024 Moraes Score Blood Edema Fundus Height Fundus Units Glucose Ketones Leukocytes Nitrite Labor Signs Protein Cervic Dilation Cervic Effacement Cervic Station Type Weight in lbs Pre/Post Dialysis Refused Weight 243.053655400846 BP Diastolic BP Location Tested BP Systolic BP Type 72 L arm 108 sitting Fetus Heart Rate Present A 154 Present Fetus Movement A Yes Comments no complaints, no problems, routine care, no contractions, no vaginal bleeding, no loss of fluid, no cramping Flowsheet Date 11/16/2024 Moraes Score Blood Edema Fundus Height Fundus Units Glucose Ketones Leukocytes Nitrite Labor Signs Protein Cervic Dilation Cervic Effacement Cervic Station Type Weight in lbs Pre/Post Dialysis Refused 244.994665066146 BP Diastolic BP Location Tested BP Systolic BP Type 74 L arm 115 sitting Fetus Heart Rate Present A 145 Present Fetus Movement A Yes Comments no complaints, no problems, routine care, no contractions, no vaginal bleeding, no loss of fluid, no cramping Flowsheet Date 12/02/2024 Moraes Score Blood Edema Fundus Height Fundus Units Glucose Ketones Leukocytes Nitrite Labor Signs Protein Cervic Dilation Cervic Effacement Cervic Station Type Weight in lbs Pre/Post Dialysis Refused 246.982589608672 BP Diastolic BP Location Tested BP Systolic BP Type 69 L arm 117 sitting Fetus Heart Rate Present A 140 Present Fetus Movement A Yes Comments no complaints, no problems, routine care, no contractions, no vaginal bleeding, no loss of fluid, no cramping Flowsheet Date 12/19/2024 Moraes Score Blood Edema Fundus Height Fundus Units Glucose Ketones Leukocytes Nitrite Labor Signs Protein Cervic Dilation Cervic Effacement Cervic Station neg trace Type Weight in lbs Pre/Post Dialysis Refused Weight 246.321097428543 BP Diastolic BP Location Tested BP Systolic BP Type 80 L arm 133 sitting Fetus Heart Rate Present A 145 Fetus Movement A Yes Comments Good movement. No cram ping or bleeding. Will start testing at 34 weeks for 2VC and BMI. Discussed preadmission. RTC 2 weeks. Flowsheet Date 12/29/2024 Moraes Score Blood Edema Fundus Height Fundus Units Glucose Ketones Leukocytes Nitrite Labor Signs Protein Cervic Dilation Cervic Effacement Cervic Station Type Weight in lbs Pre/Post Dialysis Refused BP Diastolic BP Location Tested BP Systolic BP Type Fetus Heart Rate Present Fetus Movement Comments Flowsheet Date 12/29/2024 Moraes Score Blood Edema Fundus Height Fundus Units Glucose Ketones Leukocytes Nitrite Labor Signs Protein Cervic Dilation Cervic Effacement Cervic Station Type Weight in lbs Pre/Post Dialysis Refused BP Diastolic BP Location Tested BP Systolic BP Type Fetus Heart Rate Present Fetus Movement Comments Flowsheet Date 12/29/2024 Moraes Score Blood Edema Fundus Height Fundus Units Glucose Ketones Leukocytes Nitrite Labor Signs Protein Cervic Dilation Cervic Effacement Cervic Station Type Weight in lbs Pre/Post Dialysis Refused Weight 248.877933620605 BP Diastolic BP Location Tested BP Systolic BP Type 71 L arm 105 sitting Fetus Heart Rate Present A 129 Fetus Movement A Yes Comments Baby active, no ctx or bleed ing. Scheduled preadmission. Formula feeding. BPP 10, vertex. RTC 1 week. Flowsheet Date 01/05/2025 Moraes Score Blood Edema Fundus Height Fundus Units Glucose Ketones Leukocytes Nitrite Labor Signs Protein Cervic Dilation Cervic Effacement Cervic Station Type Weight in lbs Pre/Post Dialysis Refused BP Diastolic BP Location Tested BP Systolic BP Type Fetus Heart Rate Present Fetus Movement Comments Flowsheet Date 01/05/2025 Moraes Score Blood Edema Fundus Height Fundus Units Glucose Ketones Leukocytes Nitrite Labor Signs Protein Cervic Dilation Cervic Effacement Cervic Station Type Weight in lbs Pre/Post Dialysis Refused BP Diastolic BP Location Tested BP Systolic BP Type Fetus Heart Rate Present Fetus Movement Comments Flowsheet Date 01/05/2025 Moraes Score Blood Edema Fundus Height Fundus Units Glucose Ketones Leukocytes Nitrite Labor Signs Protein Cervic Dilation Cervic Effacement Cervic Station Type Weight in lbs Pre/Post Dialysis Refused [id number] BP Diastolic BP Location Tested BP Systolic BP Type 70 L arm 106 sitting Fetus Heart Rate Present A 130 Fetus Movement A Yes Comments no complaints, no problems, routine care, no contractions, no vaginal bleeding, no loss of fluid, no cramping Menstrual History Last Menstrual Date Menses Monthly On Bcp Conception Prior Menses Frequency Hcg Plus Date Menarche Onset Age 1105/06/2024 true 28 Delivery Information Delivery Date Delivery Type Labor Anesthesia Weeks Gestation Incision Type Labor Labor Length Hrs Delivered By Post Complications Tubal Sterilization Discharge Date Comments Discharge Information Feeding Method Contraceptive Method Maternal HG B and HCT Levels Ob Episode Information Episode Created Date Number of Fetuses Patient Bloodtype Patient rh Status Prepregnancy Weight lbs Domestic Partner Domestic Partner Phone Father Name Telecommunications Equipment Installer Status 07/13/19 25 1 CLOSED Fetus Data First Name Last Name Admitted to NICU Weight (g) Sex Living Outcome Pediatric Complications Fetus ID Race Codes Race Delivery Type , Induced [id number] Tommy Calculation Initial Tommy Date Initial Exam Date Initial Exam Provider Initial Ultrasound Date Last Menstrual Period Date Ultra Sound Weeks Gestation 0 Eighteen To Twenty Week Tommy Update Ultra Sound Date Fundal Height At Umbil Quickening Date Ultra Sound Latest Weeks Gestation Final Tommy Confirmed By Final Tommy Confirmed Date Final Tommy Date Ultra Sound Latest Days Gestation 0 0 Menstrual History Last Menstrual Date Menses Monthly On Bcp Conception Prior Menses Frequency Hcg Plus Date Menarche Onset Age Delivery Information Delivery Date Delivery Type Labor Anesthesia Weeks Gestation Incision Type Labor Labor Length Hrs Delivered By Post Complications Tubal Sterilization Discharge Date Comments 9 Discharge Information Feeding Method Contraceptive Method Maternal HG B and HCT Levels Ob Episode Information Episode Created Date Number of Fetuses Patient Bloodtype Patient rh Status Prepregnancy Weight lbs Domestic Partner Domestic Partner Phone Father Name Telecommunications Equipment Installer Status 03/29/20 24 1 CLOSED Fetus Data First Name Last Name Admitted to NICU Weight (g) Sex Living Outcome Pediatric Complications Fetus ID Race Codes Race Delivery Type 3543.46 [id number] M Full Term [id number] Primary Tommy Calculation Initial Tommy Date Initial Exam Date Initial Exam Provider Initial Ultrasound Date Last Menstrual Period Date Ultra Sound Weeks Gestation 0 Eighteen To Twenty Week Tommy Update Ultra Sound Date Fundal Height At Umbil Quickening Date Ultra Sound Latest Weeks Gestation Final Tommy Confirmed By Final Tommy Confirmed Date Final Tommy Date Ultra Sound Latest Days Gestation 0 0 Menstrual History Last Menstrual Date Menses Monthly On Bcp Conception Prior Menses Frequency Hcg Plus Date Menarche Onset Age Delivery Information Delivery Date Delivery Type Labor Anesthesia Weeks Gestation Incision Type Labor Labor Length Hrs Delivered By Post Complications Tubal Sterilization Discharge Date Comments 3 40.1 Discharge Information Feeding Method Contraceptive Method Maternal HG B and HCT Levels
--- OUTSIDE RECORDS SUMMARY | 2025-01-09 14:46 | XMS_ITS | Clinical Summary ---
Author Organization [facility] Address [address] [place] [address] Care Team Providers Care Spindle Plumber Name Role Phone France Jhaveri PA-C Primary Care Provider [phone] Source Comments [facility],non-owned Affiliates and Associated Physician Practices is amultiple site organization consisting of ambulatory clinics and hospital sitesin [place], [place], [place] and [place]. This disclosure is being madepursuant to the Care Everywhere program and may not contain all information available regarding this patient. Last updated 18.[facility] Allergies Active Allergy Reactions Criticality Noted Date Comments Mosquito (Culex Pipiens) Allergy Skin Test 01/07/2016 Medications * This document contains information received from the source organization and may not represent a complete record from that organization. * Be aware that medications may not be up to date on this document. Alwaysverify current medications with the patient. prochlorperazine (COMPAZINE) 10 MG tabletIndications: Nonintractable headache, unspecified chronicity pattern, unspecified headache type Take 1 tablet by mouth every 8 hours as needed for Nausea/Vomiting 16 tablet 10/26/19 19 Active Additional Information Patient not taking.Reported on 11/08/2018 ondansetron (ZOFRAN) 4 MG tabletIndications: Nausea and vomiting, intractability of vomiting not specified, unspecified vomiting type,Nonintractabl e headache, unspecified chronicity pattern, unspecified headache type Take 1 tablet by mouth every 6 hours as needed for Nausea/Vomiting 12 tablet 1 11/25/19 19 Active Dhltbumi-SmRou-ZF- DHA w/o A ( + DHA PO) Active Active Problems Patient Care Coordination No te Formatting of this note migh t be different from the original. Please see care plan in problem list. Problem Noted Date Diagnosed Date Depression screen 11/28/2024 Overview (12/05/2024): 11/28/2024 Luh Muhammad was screened for depression using the [place] Depression Scale (EPDS) at her [facility] initial evaluation on 11/28/2024. Her initial score at baseline was 8. Based off of her score of 8, Luh does not warrant follow up. Patient will continue to be screened throughout , at intervals no closer than two weeks, for continued surveillance and early identification of depression until delivery. Patient reports mental health history. Diagnoses include depression, depression, anxiety, bipolar disorder. [facility]: abnormality in (HCC) - Abdo erickson Cyst 11/01/2024 Overview (11/29/2024): Images from the original note were not included. [facility] PATIENT--PLEASE CALL [phone] (ex 2) IF TRIAGED OR ADMITTED Care Provider: Dr. Spear [facility] consultants involved: RN-Pushpa; M-Sarwat; Lead Portfolio Manager- Dr. Sales Diagnosis: cyst (single) noted in the posterior LUQ of the abdomen - measures 1.04 x 1.12 x 1.2 cm; relatively stable in size compared to previous exams. Appears simple in nature. Location is most consistent with the superior pole of the left kidney. Single umbilical artery (2 vessel-cord) Planned surveillance: Initial appointment at [facility] on 11.28.24. Follow-up ultrasound in 6 weeks at the [facility] office at [place] for growth and cyst assessment. Continue routine OB care Delivery location: with primary OB at [facility] (planning [place]) Delivery mode: hx c/s x1 Desired Delivery GA: Per usual OB indications follow up per Nephrology: We recommend a followup ultrasound after to further assess the kidneys between 2 and 4 weeks of age. J2Ee Application Developer: Care plan based on evaluation and is subject to change based on assessment. See Images or Cardiac under Chart Review for US/ ECHO/ MRI reports. Two vessel umbilical cord in rodriguez , antepartum 10/04/2024 Overview (10/04/2024): TWO-VESSEL abnormality affecting management of mother 10/04/2024 Overview (10/04/2024): - Referral faxed to [facility] 09/28/24 pt scheduled [facility] 10/04/24 Level II us and consult Assessment & Plan (10/31/2024 2:58 PM CDT): There is a simple appearing abdominal cyst. Recommend [facility] consult to evaluate and make recommendations. No other concerns are identified. Previous delivery, antepartum condition or complication 10/04/2024 Overview (10/04/2024): TO HAVE REPEAT Depression with anxiety 01/09/2015 Estimated Date of Delivery Comme nts Yes 02/10/2025 Based on last me nstrual period of 05/06/2024 Encounters Date Type Department Care Team Description 12/27/2024 2:21 PM CDT - 12/27/2024 11:59 PM CDT Hospital Encounter [facility] [address] [place] [id number] Thuy Adam MD Discharge Disposition: Home or Self Care 11/29/2024 Telephone [facility] [address] [address] Nara Enrique Update 11/28/2024 1:14 PM CDT - 11/28/2024 11:59 PM CDT Hospital Encounter [address] [address] Xavier Fam MD Discharge Disposition: Home or Self Care 10/31/2024 1:33 PM CDT - 10/31/2024 11:59 PM CDT Hospital Encounter [facility] [address] [place] [id number] Camille Martinez MD Discharge Disposition: Home or Self Care 10/31/2024 Telephone Maternal & Care at [facility] [address] [place] [address] Camille Martinez MD Results from Last 3 Months Immunizations Immunization Administration Dates Next Due DTaP VACCINE IM (6wk-6yrs) 04/04/2003,,03/21/1998,01/05/1998, HEP B VACCINE, PED/ADOL 03/21/1998,1997, HIB-PRP-T 4 DOSE 02/09/2001,03/21/1998, 8,1997 Human Papilloma Virus Vaccine 03/16/2015, 010,03/25/2010 INFLUENZA VACCINE 02/28/2016 MENINGOCOCAL MENINGITIS 03/25/2010 MMR 04/04/2003,02/09/2001 POLIO IPV 04/04/2003,02/09/2001,01/05/1998 ,1997 TDAP (7yrs+) 03/25/2010 Family History Medical History Relation Name Comments Heart Disease Maternal Grandfather Heart Disease Maternal Grandmother Heart Disease Paternal Grandfather Heart Disease Paternal Grandmother Relation Name Status Comments Maternal Grandfather Alive Maternal Grandmother Alive Paternal Grandfather Paternal Grandmother Alive Social History Tobacco Use Types Packs/Day Years Used Date Smoking Tobacco: Every Day Cigarettes 0.3 6.4 Started: 07/30/2018 Smokeless Tobacco: Never Tobacco Cessation:Counseling Given: No Alcohol Use Standard Drinks/Week Comments No 0 (1 standard drink = 0.6 oz pur e alcohol) Overall Financial Resource Strain (CARDIA) Answe r Date Recorded How hard is it for you to pa y for the very basics like food, housing, medical care, and heating? Somewhat hard 10/04/2024 [facility] - Occupational Stress Questionnaire Answer Date Recorded Do you feel stress - tense, restless, nervous, or anxious, or unable to sleep at night because your mind is troubled all the time - these days? Rather much 10/04/2024 Hunger Vital Sign Answer Date Recorded Within the past 12 months, y ou worried that your food would run out before you got the money to buy more. Never true 10/05/19 25 Within the past 12 months, t he food you bought just didn't last and you didn't have money to get more. Never true 10/04/2024 PRAPARE - Transportation Answer Date Re corded In the past 12 months, has l ack of transportation kept you from medical appointments or from getting medications? No 01/2025 In the past 12 months, has l ack of transportation kept you from meetings, work, or from getting things needed for daily living? No 10/04/2024 [place] Depression Scale Answer Date Recorded [place] Depression Scale Total 8 11/28/2024 The thought of harming myself has occurred to me . Never 11/28/2024 Housing Stability Vital Sign Answer Antonio e Recorded In the last 12 months, was t here a time when you were not able to pay the mortgage or rent on time? No 10/04/2024 In the past 12 months, how m any times have you moved where you were living? 1 10/04/2024 At any time in the past 12 m [facility], were you homeless or living in a fdc (including now)? 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 Gender Identity Not on file Sexual Orientation Not on file Last Filed Vital Signs Vital Sign Reading Time Taken Comments Blood Pressure 105/74 11/28/2024 1:36 PM CDT Pulse 97 11/28/2024 1:36 PM CDT Temperature 36.6 C (97.9 F) 11/24/2018 1:09 PM CDT Respiratory Rate 18 10/04/2024 3:09 PM CDT Oxygen Saturation 99% 11/24/2018 1:09 PM CDT Inhaled Oxygen Concentration - - Weight 109 kg (240 lb 4.8 oz) 11/28/2024 1:36 PM CDT Height 154.9 cm (5' 1) 11/08/2018 1:11 PM CDT Body Mass Index 45.4 11/08/2018 1:11 PM CDT Plan of Treatment Upcoming Encounters Date Type Department Care Team (Late st Contact Info) Description 01/25/2025 2:30 PM CDT Appointment [facility] [address] [place] [address] Health Maintenance Due Date Last Done Comments HEPATITIS C SCREENING 08/10/2015 PNEUMOCOCCAL VACCINE (1 of 2 - PCV) 2016 PAP SMEAR 2018 DTAP/TDAP/TD VACCINES (7 - Td or Tdap) 03/25/2020 03/25/2010, 04/04/2003, 02/09/2001, Additional history exists COVID-19 VACCINE ( season) 2024 OB-TDAP CURRENT 11/11/2024 03/25/2010 OB-RHOGAM INJECTION 11/18/2024 OB-GROUP B STREP SCREEN 01/06/2025 INFLUENZA VACCINE (#1) 2025 02/28/2016 ZOSTER VACCINE (1 of 2) 2047 HEPATITIS B VACCINE Completed 03/21/1998, 1997, 1997 HIB VACCINE Completed 02/09/2001, 02/28, 01/05/1998, Additional history exists MENINGOCOCCAL GROUPS A/C/Y/W VACCINE Aged Out 03/25/2010 No longer eligible based on patient's age to complete this topic HPV VACCINE Completed 03/16/2015, 04/30, 03/25/2010 HIV SCREENING Completed 11/16/2024, 08/03/2024 OB-ONE HOUR GLUCOSE Completed 11/16/2024 DEPRESSION SCREENING Completed 11/28/2024 MENINGOCOCCAL (Group B) VACCINE SHARED DECISION-MAKING Aged Out No longer eligible based on patient's age to complete this topic Respiratory Syncytial Virus (RSV) Vaccine Pt: or over 60 yrs (No Doses Required) Completed Procedures Procedure Name Priority Date/Time Associated Diagnosis Comments SONOGRAM - COMPLETE Routine 12/27/2024 2:30 PM CDT SHELTER: abnormality in (HCC) - Abdominal Cyst Depression screen Two vessel umbilical cord in rodriguez , antepartum (HCC) Encounter for ultrasound to assess growth (HCC) SONOGRAM - COMPLETE Routine 11/28/2024 2:08 PM CDT abnormality affecting management of mother, single or unspecified fetus (HCC) SONOGRAM - COMPLETE Routine 10/31/2024 1:38 PM CDT Encounter for follow-up ultrasound of anatomy (HCC) Single umbilical artery affecting management of mother in rodriguez , antepartum (HCC) Two vessel umbilical cord in rodriguez , antepartum (HCC) Previous delivery, antepartum condition or complication (HCC) Encounter for ultrasound to assess growth (HCC) abnormality affecting management of mother, single or unspecified fetus (HCC) 25 weeks gestation of (HCC) from Last 3 Months Results * Sonogram - Complete (12/27/2024 2:30 PM CDT) Only the most recent of3 resultswithin the time period is included. Linked Results Indication ======== Renal cyst in LUQ anatomy survey complete 2 vessel cord Obesity, class III Hx C/S x1 LR NIPT with no call 22q History ====== OB History 3. Para 1 [id number] 1. elective termination 2018 2. live 2022. Gest. age 40 w + 0 d. Sex of child: male. Details: delivery Maternal Assessment Physical Exam Height 155 cm, 5 ft 1 in. Initial weight 107 kg, 236 lb. Initial BMI 44.59 kg/m Method ====== Transabdominal ultrasound. View: Sufficient ========= Rodriguez . Number of fetuses: 1 Dating ====== Date Details Gest. age LAM LMP 05/06/2024 33 w + 4 d 02/10/2025 Stated LAM 33 w + 4 d 02/10/2025 U/S 12/27/2024 based upon AC, BPD, Femur, HC 34 w + 1 d 02/06/2025 Assigned dating based on the LMP, selected on 10/04/2024 33 w + 4 d 02/10/2025 General Evaluation Cardiac activity present. FHR 126 bpm. Presentation: cephalic Placenta: Placental site: posterior Umbilical cord: Cord vessels: 2 vessel cord. Insertion site: normal insertion - previously documented Amniotic fluid: Amount of AF: normal. MVP 6.1 cm. STEPHANIE 18.1 cm. Q1 6.1 cm, Q2 4.9 cm, Q3 3.8 cm, Q4 3.3 cm Biometry BPD 85.1 mm 34w 2d 67% Hadlock HC 309.8 mm 34w 4d 39% Hadlock AC 299.7 mm 34w 0d 64% Hadlock Femur 65.4 mm 33w 5d 43% Hadlock Humerus 56.2 mm 32w 5d 35% Dagoberto HC / AC 1.03 -/- Hadlock Weight Calculation: EFW 2,320 g 55% Hadlock EFW (lb,oz) 5 lb 2 oz EFW by Hadlock ([id number]) appropriate Growth Overview Exam date GA BPD (mm) HC (mm) AC (mm) FL (mm) HL (mm) EFW (g) 10/04/2024 21w 4d 50.9 42% 193.2 38% 170.9 59% 36.8 45% 34.3 53% 455 57% 10/31/2024 25w 3d 62.1 33% 235.9 34% 211.2 48% 47.1 45% 41.2 25% 835 48% 11/28/2024 29w 3d 74.7 55% 274.9 33% 257.1 58% 57.1 50% 50.2 46% 1478 55% 12/27/2024 33w 4d 85.1 67% 309.8 39% 299.7 64% 65.4 43% 56.2 35% 2320 55% Anatomy The following structures appear normal: Abdomen Stomach. Kidneys. Bladder. Impression ========= Single, live, intrauterine at 33w 4d The size is appropriate No major malformations were seen within the limitations of ultrasound The previous left renal cyst is not visualized on today's exam The amniotic fluid volume is harleen Follow-up ======== Weekly testing locally with referring OB as previously recommended Ultrasound in four -five weeks to reassess growth Coding ====== Procedures [id number]: US Preg Uterus Follow Up [id number] PACS Anatomical Region Laterality Modality Other 12/27/2024 2:30 PM CDT us R Maverick Spear MD [facility] ORDERABLES Edited Result - Final from Last 3 Months Insurance ANTHEM Care Teams Spindle Plumber Relationship Specialty Start Date End Date France Jhaveri, ASRAH [address] [place] [address] PCP - General Physician Filler Machine Operator 01/09/15
[2025-01-09 14:47] VITALS: BP 112/41; PULSE 89
[2025-01-09 15:00] VITALS: RESP 16; TEMP 36.4
[2025-01-09 15:01] VITALS: BP 114/64; PULSE 84
[2025-01-09 15:16] VITALS: BP 114/67; PULSE 83
[2025-01-09 15:31] VITALS: BP 127/71; PULSE 89
[2025-01-09] MEDS: TERBUTALINE SULFATE 1 MG/ML VIAL 0.25 MG SUB-Q ×2 (15:38→16:33)
[2025-01-09 15:47] VITALS: BP 73/41; PULSE 89
--- NOTE | 2025-02-05 21:13 | PM.OBTRLD ---
OB - Triage/Final Diagnosis Visit Information Comments/Additional reasons for admission: I have assessed the risk for this patient, Luh Muhammad, and determined that she would benefit from observation care. Final Diagnosis (1) False labor: Code(s): O47.9 - False labor, unspecified Status: Acute
== END 2025-01-09 17:48 | disposition home or self-care (01) ==
PROVIDERS: Admitting Provider Obstetrics & Gynecology; Visit Provider Obstetrics & Gynecology
DX: O47.03 False labor before 37 completed weeks of gestation, third trimester (principal); Z3A.35 35 weeks gestation of pregnancy
CPT/HCPCS: 96372; A9270; G0378; G0379; J3105

== ENCOUNTER 2025-02-03 05:22 | Inpatient (IN) | payer BC, SELFPAY ==
[2025-02-03] VITALS (58 sets, daily range): BP systolic 84–132; BP diastolic 43–96; PULSE 54–198; RESP 14–21; TEMP 36.3–36.6; O2SAT 83–100; BMI 46.6
--- OUTSIDE RECORDS SUMMARY | 2025-02-03 03:05 | XMS_ITS | Clinical Summary ---
Author Organization [facility] [employer] Address [address] [place] [address] Care Team Providers Care Manager Garden Name Role Phone France Jhaveri PA-C Primary Care Provider Source Comments [facility] [employer],non-owned Affiliates and Associated Physician Practices is amultiple site organization consisting of ambulatory clinics and hospital sitesin [place], [place], [place] and [place]. This disclosure is being madepursuant to the Care Everywhere program and may not contain all information available regarding this patient. Last updated 18.[facility] [employer] Allergies Active Allergy Reactions Criticality Noted Date [...] Nausea/Vomiting 12 tablet 1 11/25/19 19 Active Zsqpezcs-DcQdr-VG- DHA w/o A ( + DHA PO) Active Active Problems Patient Care Coordination No te Formatting of this note migh t be different from the original. Please see care plan in problem list. Problem Noted Date Diagnosed Date Depression screen 11/28/2024 Overview (12/05/2024): 11/28/2024 Luh Muhammad was screened for depression using the [place] Depression Scale (EPDS) at her [facility] initial evaluation on 11/28/2024. Her initial score at baseline was 8. Based off of her score of 8, Luh does not warrant follow up. Patient will continue to be screened throughout , at intervals no closer than two weeks, for continued surveillance and early identification of depression until delivery. Patient reports mental health history. Diagnoses include depression, depression, anxiety, bipolar disorder. NURSING HOME: abnormality in (HCC) - Abdo erickson Cyst 11/01/2024 Overview (11/29/2024): Images from the original note were not included. NURSING HOME PATIENT--PLEASE CALL [phone] (ex 2) IF TRIAGED OR ADMITTED Care Provider: Dr. Spear [facility] consultants involved: RN-Pushpa; M-Sarwat; Sap Bpc Architect- Dr. Sales Diagnosis: cyst (single) noted in the posterior LUQ of the abdomen - measures 1.04 x 1.12 x 1.2 cm; relatively stable in size compared to previous exams. Appears simple in nature. Location is most consistent with the superior pole of the left kidney. Single umbilical artery (2 vessel-cord) Planned surveillance: Initial appointment at NURSING HOME on 11.28.24. Follow-up ultrasound in 6 weeks at the [facility] office at [place] for growth and cyst assessment. Continue routine OB care Delivery location: with primary OB at [facility] (planning [place]) Delivery mode: hx c/s x1 Desired Delivery GA: Per usual OB indications follow up per Nephrology: We recommend a followup ultrasound after to further assess the kidneys between 2 and 4 weeks of age. 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 See Images or Cardiac under Chart Review for US/ ECHO/ MRI reports. Two vessel umbilical cord in rodriguez , antepartum 10/04/2024 Overview (10/04/2024): TWO-VESSEL abnormality affecting management of mother 10/04/2024 Overview (10/04/2024): - Referral faxed to [facility] 09/28/24 pt scheduled [facility] 10/04/24 Level II us and consult Assessment & Plan (10/31/2024 2:58 PM CDT): There is a simple appearing abdominal cyst. Recommend NURSING HOME consult to evaluate and make recommendations. No other concerns are identified. Previous delivery, antepartum condition or complication 10/04/2024 Overview (10/04/2024): TO HAVE REPEAT Depression with anxiety 01/09/2015 Estimated Date of Delivery Comme nts Yes 02/10/2025 Based on last me nstrual period of 05/06/2024 Encounters Date Type Department Care Team Description 01/25/2025 2:28 PM CDT - 01/25/2025 11:59 PM CDT Hospital Encounter [facility] [address] [place] [id number] Thuy Adam MD Discharge Disposition: Home or Self Care 12/27/2024 2:21 PM CDT - 12/27/2024 11:59 PM CDT Hospital Encounter [facility] [address] [place] [id number] Thuy Adam MD Discharge Disposition: Home or Self Care 11/29/[address] [address] Nara Enrique Update 11/28/2024 1:14 PM CDT - 11/28/2024 11:59 PM CDT Hospital Encounter [address] [place] [address] Xavier Fam MD Discharge Disposition: Home or Self Care from Last 3 Months Immunizations Immunization Administration [...] Date Smoking Tobacco: Every Day Cigarettes 0.3 6.5 Started: 07/30/2018 Smokeless Tobacco: Never Tobacco Cessation:Counseling Given: No Alcohol Use Standard Drinks/Week Comments No 0 (1 standard drink = 0.6 oz pur e alcohol) Overall Financial Resource Strain (CARDIA) Answe r Date Recorded How hard is it for you to pa y for the very basics like food, housing, medical care, and heating? Somewhat hard 10/04/2024 [facility] [place] [facility] - Occupational Stress [...] the money to buy more. Never true 04/08/20 25 Within the past 12 months, t [...] things needed for daily living? No 10/04/2024 [place] Depression Scale Answer Date Recorded [place] Depression Scale Total 8 11/28/2024 The thought [...] any time in the past 12 m [facility], were you homeless or living in a fci (including now)? No 10/04/2024 Estimated Date of Delivery Comme nts Yes 02/10/2025 Based on last me nstrual period of 05/06/2024 Sex and Gender Information Value Date Recorded Sex Assigned at Not on file Legal Sex Female 8:20 PM DIRECTOR EMERGENCY SERVICES Gender Identity Not on file Sexual Orientation [...] 11/08/2018 1:11 PM CDT Plan of Treatment Health Maintenance Due Date Last Done Comments HEPATITIS C SCREENING 08/10/2015 PNEUMOCOCCAL VACCINE (1 of 2 - PCV) 2016 PAP SMEAR 2018 DTAP/TDAP/TD VACCINES (7 - Td or Tdap) 03/25/2020 03/25/2010, 04/04/2003, 02/09/2001, Additional history exists COVID-19 VACCINE ( - season) 2024 OB-TDAP CURRENT 11/11/2024 03/25/2010 OB-RHOGAM INJECTION 11/18/2024 INFLUENZA VACCINE (#1) 2025 02/28/2016 ZOSTER VACCINE [...] GLUCOSE Completed 11/16/2024 DEPRESSION SCREENING Completed 11/28/2024 OB-GROUP B STREP SCREEN Completed 01/13/2025 MENINGOCOCCAL (Group B) VACCINE SHARED DECISION-MAKING Aged Out No longer eligible based on patient's age to complete this topic Respiratory Syncytial Virus (RSV) Vaccine Pt: or over 60 yrs (No Doses Required) Completed Procedures Procedure Name Priority Date/Time Associated Diagnosis Comments SONOGRAM - COMPLETE Routine 01/25/2025 2:39 PM CDT NURSING HOME: abnormality in (HCC) - Abdominal Cyst Depression screen Encounter for ultrasound to assess growth (HCC) Single umbilical artery affecting management of mother in rodriguez , antepartum (HCC) Previous delivery, antepartum condition or complication (HCC) 37 weeks gestation of (HCC) SONOGRAM - COMPLETE Routine 12/27/2024 2:30 PM CDT NURSING HOME: abnormality in (HCC) - Abdominal Cyst Depression screen Two vessel umbilical cord in rodriguez , antepartum (HCC) Encounter for ultrasound to assess growth (HCC) SONOGRAM - COMPLETE Routine 11/28/2024 2:08 PM CDT abnormality affecting management of mother, single or unspecified fetus (HCC) from Last 3 Months Results * Sonogram - Complete (01/25/2025 2:39 PM CDT) Only the most recent of3 resultswithin the time period is included. Linked Results Indication ======== Two vessel umbilical cord Obesity complicating , Class 3 - BMI of 40.0 or greater Known or suspected anomaly Left Renal Cyst-Resolved on 12/27 exam History ====== OB History 3. Para 1 [id number] 1. elective termination 2018 2. live 2022. Gest. age 40 w + 0 d. Sex of child: male. Details: delivery Lab Tests Test Date Result NIPT Low risk; No call 22q Maternal Assessment Physical Exam Height 155 cm, 5 ft 1 in. Initial weight 107 kg, 236 lb. Initial BMI 44.59 kg/m Method ====== Transabdominal ultrasound. View: Good view ========= Rodriguez . Number of fetuses: 1 Dating ====== Date Details Gest. age LAM LMP 05/06/2024 37 w + 5 d 02/10/2025 Stated LAM 37 w + 5 d 02/10/2025 U/S 01/25/2025 based upon AC, BPD, Femur, HC 38 w + 0 d 02/08/2025 Assigned dating based on the LMP, selected on 10/04/2024 37 w + 5 d 02/10/2025 General Evaluation Cardiac activity present. FHR 141 bpm. Presentation: cephalic Placenta: Placental site: posterior Umbilical cord: Cord vessels: 2 vessel cord. Insertion site: normal insertion - previously documented Amniotic fluid: Amount of AF: normal. MVP 6.2 cm. STEPHANIE 20.9 cm. Q1 6.2 cm, Q2 4.8 cm, Q3 3.8 cm, Q4 6.1 cm Biometry BPD 91.9 mm 37w 2d 60% Hadlock HC 336.7 mm 38w 4d 49% Hadlock AC 348.7 mm 38w 5d 89% Hadlock Femur 72.8 mm 37w 2d 40% Hadlock Humerus 61.0 mm 35w 2d 24% Dagoberto HC / AC 0.97 -/- Hadlock Weight Calculation: EFW 3,435 g 73% Hadlock EFW (lb,oz) 7 lb 9 oz EFW by Hadlock (PTB-MC-DR-FL) appropriate Growth Overview Exam date GA BPD [...] 64% 65.4 43% 56.2 35% 2320 55% 01/25/2025 37w 5d 91.9 60% 336.7 49% 348.7 89% 72.8 40% 61 24% 3435 73% Anatomy The following structures appear normal: Abdomen Stomach. Kidneys. Bladder. Impression ========= Single, live, intrauterine at 37w 5d The size is appropriate. The amniotic fluid volume is normal. Left renal cyst was again not identified No major malformations were seen within the limitations of ultrasound Follow-up ======== Repeat scheduled for 02/03/2025 Coding ====== Diagnoses O43.893: Other placenta disorders O99.213, E66.813: Obesity complicating , Class 3 - BMI of 40.0 or greater O35.9XX0: Maternal care for (suspected) abnormality and damage, unspecified Procedures 37631: US Preg Uterus [facility] Anatomical Region Laterality Modality Other 01/25/2025 2:39 PM CDT R Maverick Spear MD [facility] ORDERABLES Edited Result - Final from Last 3 Months Insurance ANTH Care Teams Manager Garden Relationship Specialty Start Date End Date France Jhaveri PA-C [address] [place] [address] PCP - General Physician Product Builder 01/09/15
[2025-02-03 06:13] LABS: Hematocrit 34.8 % (37.0-47.0); Hemoglobin 10.9 g/dL (12.0-15.0); Immature Granulocyte Percent A 0.6 % (0-0.5); Lymphocytes Absolute Auto 2.22 K/mm3 (0.9-3.2); Mean Corpuscular HGB Conc 31.3 g/dl (32-36); Mean Corpuscular Hemoglobin 26.8 pg (26-34); Mean Corpuscular Volume 85.5 fl (80-100); Nucleated Red Blood Cells Absolute Auto 0.000 K/mm3 (0.0-0.012); Nucleated Red Blood Cells Perc 0.0 % (0.0-0.2); Platelet Count Result 289 k/mm3 (150-375); Red Blood Count 4.07 M/mm3 (4.2-5.4); White Blood Count 10.6 K/mm3 (4.5-10.0)
[2025-02-03] MEDS: ACETAMINOPHEN 500 MG TABLET 1000 MG PO ×3 (06:19→20:55)
[2025-02-03] MEDS: LACTATED RINGERS 1,000 ML 125 ML IV CONT ×3 (06:20→08:57)
--- NOTE | 2025-02-03 06:27 | LDADM ---
This patient, Luh Muhammad, was admitted to Labor/Delivery/Recovery 120 on 02/03/25 at 05:22. Plans for labor, pain management and were discussed with patient. Patient/family oriented to hospital policies and general routines including ID bracelet, bed and alarms, visiting hours, pain management, procedures, bathroom and other care routines, personal items, smoking policy, room service/diet and guest tray routines, security routines, and visiting hours. Patient/Family are encouraged to report perceived risks to care and to ask questions if they do not understand what they are told or what they should do. See OBIX for further documentation.
--- NOTE | 2025-02-03 07:08 | WPDANESEPPF ---
Anes - Initial Pre Proc Eval Procedure: Operation Date: 02/03/25 07:30 Proposed Procedures p Repeat Section - Matty Muhammad MD Date/Time: 02/03/25 07:08 Surgeon: Matty Muhammad MD Pre Op Diagnosis: C/S Patient Data Age: 29 Gender: F Height: 1.55 m Weight: 112 kg Last Vital Signs Pulse 85 02/03/25 06:46 BP 113/77 02/03/25 06:46 O2 Del Method Room Air 02/03/25 06:27 Allergies Allergy/AdvReac Type Severity Reaction Status Date / Time No Known Allergies Allergy Verified 02/03/25 06:44 Home Medications ?Medication ?Instructions ?Recorded ?Confirmed ?Type vit no.95-ferrous 1 tablet PO DAILY 01/10/25 02/03/25 History fumarate 28 mg-folic acid 800 mcg tablet () Laboratory Tests 02/03/25 06:05 WBC 10.6 H K/mm3 (4.5-10.0) RBC 4.07 L M/mm3 (4.2-5.4) Hgb 10.9 L g/dL (12.0-15.0) Hct 34.8 L % (37.0-47.0) MCV 85.5 fl (80-100) MCH 26.8 pg (26-34) MCHC 31.3 L g/dl (32-36) RDW 14.6 H % (11.5-14.5) Plt Count 289 k/mm3 (150-375) MPV 10.6 H fl (7.4-10.4) Immature Gran % (Auto) 0.6 H % (0-0.5) Neut % (Auto) 70.6 % (45.5-73.1) Lymph % (Auto) 20.9 % (18.3-44.2) Fallon % (Auto) 6.8 % (2.6-8.5) Eos % (Auto) 0.6 % (0-4.4) Baso % (Auto) 0.5 % (0.2-1.2) Lymph # (Auto) 2.22 K/mm3 (0.9-3.2) Fallon # (Auto) 0.7 H K/mm3 (0.1-0.6) Eos # (Auto) 0.1 K/mm3 (0-0.3) Baso # (Auto) 0.1 K/mm3 (0.0-0.1) Abs Immat Gran (auto) 0.06 H K/mm3 (0.00-0.031) Absolute Neuts (auto) 7.5 H K/mm3 (1.3-6.7) Absolute Nucleated RBC 0.000 K/mm3 (0.0-0.012) Nucleated RBC % 0.0 % (0.0-0.2) Patient hx anesthesia problems: none Family hx anesthesia problems: none Results Review: All pre-operative results and documents have been reviewed as part of the pre-operative evaluation. [facility] Past Medical History Medical History Irregular periods/menstrual cycles Suppression of menstruation Encounter for IUD insertion insertion - 01/28/2023 No acute medical problems Surgical History Surgical History History of gynecological procedure iud removal Family History Family History Other No acute medical problems Social History Social History Smoking packs per day: 1 Smoking cigarettes per day: 20.0 Years smoked: 4 Smoking pack-years: 4.00 Smoking status: Current some day smoker Tobacco type: e-cigarettes/vaping Second hand tobacco smoke exposure: No Smoking end date: 03/03/22 Alcohol intake: never Substance use: never Substance use type: does not use Do You Feel Safe in your Home?: Yes Lack of Transportation: No Lack of Food: Never True Current Housing: I Have Housing Concerned About Future Housing: No Difficulty Paying Gas/Electric Bills: No Difficulty Paying for Meds: No Currently Unemployed: No Education: High School Diploma/GED Difficulty w/ Childcare or Family Care: No Living arrangements: other Additional living arrangements comments: Occupation/Education: occupation Additional occupation/education comments: [employer] Gender identity (if verbalized by the patient): Female Sexual Orientation (if Verbalized by the Patient): Straight or Heterosexual Spiritual care concerns: No Anes - Eval Final PreProcedure Day of Procedure 02/03/25 07:08 Patient weight: morbidly obese Heart: regular rate and rhythm Lungs: clear to auscultation Airway: Mallampati scale class II Neurological: alert and oriented Last oral intake: >/= 8 hours ASA classification: III Emergent: no Anesthetic plan: proceed Anesthesia type and monitoring: regional epidural and standard monitoring Results Review: All pre-operative results and documents have been reviewed as part of the pre-operative evaluation. Informed Consent: The patient's anesthetic plan and its attendant risks and benefits were discussed with the patient/family/POA. Questions were solicited and answers provided to the satisfaction of the patient/family/POA.
[2025-02-03] MEDS: ONDANSETRON INJ 4 MG/2 ML VIAL IV PUSH (07:11)
[2025-02-03] MEDS: FAMOTIDINE 20 MG/2 ML VIAL IV PUSH (07:11)
--- NOTE | 2025-02-03 07:16 | PM.IMHP ---
H&P: HPI History of Present Illness Date/Time: 02/03/25 07:16 Chief Complaint: repeat c section Narrative: Patient is a 29 year old at 39 weeks who presents for repeat c section. Her has been complicated by hx of c section x1, mild anemia, and two vessel umbilical cord. testing has been reactive. She has now completed her childbearing and desires permanent sterilization at time of her c section. Risks benefits and alternatives were discussed with the patient and she desires bilateral salpingectomy. Review of Systems Review of Systems: All systems reviewed & are unremarkable except as noted in HPI and below PMFSH Past Medical History Medical History Irregular periods/menstrual cycles Suppression of menstruation Encounter for IUD insertion insertion - 01/28/2023 No acute medical problems Surgical History Surgical History History of gynecological procedure iud removal Family History Family History Other No acute medical problems Social History Social History Smoking packs per day: 1 Smoking cigarettes per day: 20.0 Years smoked: 4 Smoking pack-years: 4.00 Smoking status: Current some day smoker Tobacco type: e-cigarettes/vaping Second hand tobacco smoke exposure: No Smoking end date: 03/03/22 Alcohol intake: never Substance use: never Substance use type: does not use Do You Feel Safe in your Home?: Yes Lack of Transportation: No Lack of Food: Never True Current Housing: I Have Housing Concerned About Future Housing: No Difficulty Paying Gas/Electric Bills: No Difficulty Paying for Meds: No Currently Unemployed: No Education: High School Diploma/GED Difficulty w/ Childcare or Family Care: No Living arrangements: other Additional living arrangements comments: Occupation/Education: occupation Additional occupation/education comments: [employer] Gender identity (if verbalized by the patient): Female Sexual Orientation (if Verbalized by the Patient): Straight or Heterosexual Spiritual care concerns: No Meds Home Medications and Allergies Home Medications ?Medication ?Instructions ?Recorded ?Confirmed ?Type vit no.95-ferrous 1 tablet PO DAILY 01/10/25 02/03/25 History fumarate 28 mg-folic acid 800 mcg tablet () Allergies Allergy/AdvReac Type Severity Reaction Status Date / Time No Known Allergies Allergy Verified 02/03/25 06:44 Vital Signs Vital Signs - 24 hr 02/03/25 06:23 02/03/25 06:27 02/03/25 06:31 Pulse Rate 88 83 Blood Pressure 120/74 122/70 Oxygen Delivery Room Air 02/03/25 06:46 Pulse Rate 85 Blood Pressure 113/77 Oxygen Delivery Exam Const: General: comfortable and no acute distress Resp: Effort & Inspection: normal respiratory effort Extrem: General: normal to inspection Psych: Mental Status: mental status grossly normal H&P: Results Labs Labs: Short CBC 02/03/25 Range/Units 06:05 WBC 10.6 H (4.5-10.0) K/mm3 Hgb 10.9 L (12.0-15.0) g/dL Hct 34.8 L (37.0-47.0) % Plt Count 289 (150-375) k/mm3 Assessment and Plan Assessment and plan (1) Hx of section: Code(s): Z98.891 - History of uterine scar from previous surgery Status: Acute Assessment and Plan: - hx of c section x1 - risks and benefits of repeat c section vs TOLAC discussed with patient who desires to proceed with repeat c section - she also desires permanent sterilization at time of c section; risks and benefits and alternatives discussed with patient who voices understanding - will proceed with repeat c section and bilateral salpingectomy
--- NOTE | 2025-02-03 07:20 | WPDHPUPDATE1 ---
History and Physical Update Update Date/Time: 02/03/25 07:20 History and Physical has been reviewed, including an updated exam of the patient. There are NO changes in the patient's condition. Risks, benefits, and alternatives have been discussed and questions answered. Patient agrees to proceed with procedure.
[2025-02-03] MEDS: ceFAZolin 2 GM in SODIUM CHLORIDE 0.9% IV 50 ML 100 ML IVPB (07:44)
[2025-02-03 08:45] LABS: Syphilis IgG/IgM Antibody Non-Reactive (Nonreactive)
--- NOTE | 2025-02-03 09:03 | S_PTH ---
PATIENT: Luh Muhammad LOC: [facility] U#:[id number] AGE/SX: 29/F ROOM: 279 RE02/03/[address]: Keon Spear MD : 1995 BED: 00 DIS: 02/05/2025 SPEC #: [id number] RECD: 02/03/25 09:06 STATUS: BROOKE REDonnie #: [id number] MURRAY: 02/03/25 09:[address]: Matty Muhammad DEPT: [facility] Surgical RECD BY: Tolu Phillips ENTERED: 02/03/25 09:07 SP TYPE: Surgical OTHR DR: Keon Spear MD UNKNOWN,DOCTOR Tissues: A - Fallopian Tube Bilateral Procedures: Gross and Microscopic Level 2 Hematoxylin and Eosin Stain
[2025-02-03] MEDS: OXYTOCIN 30 UNITS/NS 500 ML 30 UNITS/500 ML BAG 125 UNITS IV CONT (09:15)
--- NOTE | 2025-02-03 12:32 | W.PM.OBCSD ---
OB - Delivery Note Procedure Delivery date: 02/03/25 Pre-op diagnosis: Previous Delivery Post-op Diagnosis: Same Induction method: None Delivery monitor: External FHT Prior to decision for section, ACOG/SMFM labor guidelines were considered and discussed with the patient and staff. Decision made to proceed with the section.: Yes Procedure Performed: Repeat Secondary branch: low cervical, transverse and Tubal Ligation Surgeon: Matty Muhammad MD Anesthesia type: Epidural Description of Procedure/Findings: The patient was taken to the operating room where she was placed in the dorsal supine position with a leftward tilt. The electronic monitor was placed and heart rate was found to be reassuring. She was prepped and draped in the normal sterile fashion, and anesthesia was checked to be adequate. A Pfannenstiel skin incision was made with the scalpel and carried through to the underlying layer of fascia with the scalpel. The fascia was incised in the midline and the incision extended laterally with the Morillo scissors. The superior aspect of the fascial incision was then grasped with Lady clamps, elevated, and the underlying rectus muscles dissected off bluntly and with Morillo scissors. Attention was then turned to the inferior aspect of the fascial incision, which in similar fashion was grasped, elevated, and the rectus muscles dissected off.? The rectus muscles were then in the midline, and the peritoneum entered bluntly. The peritoneal incision was extended superiorly and inferiorly with good visualization of the bladder. With the bladder blade providing retraction and visualization, the lower uterine segment was incised in a transverse fashion with the scalpel. The uterine incision was then extended laterally. The bladder blade was removed and the 's head was elevated and delivered atraumatically. The remainder of the was then delivered without difficulty, and the 's nose and mouth were suctioned with the bulb suction. The umbilical cord was doubly clamped and cut. The was then handed off to the waiting nursing staff. Specimens then obtained as listed below. The placenta was then removed manually and the uterus was exteriorized and cleared of all clots and debris. The uterine incision was repaired with 0-Monocryl in a running, interlocked fashion. At this time, a right salpingectomy was performed in the usual fashion using the Ligasure device. The same procedure was performed on the left side. Hemostasis was assured. The posterior cul-de-sac was manually cleared of all clots and debris. The uterus was returned to the abdomen. The gutters were then manually cleared of all clots and debris.? The uterine incision was visualized to be hemostatic. The fascia was reapproximated with 0-Vicryl in a running fashion. The subcutaneous tissues were irrigated with warmed normal saline, and hemostasis was assured. The subcutaneous tissue was greater than 2 cm and closed in a running fashion with 2-0 plain gut suture.? The skin was closed with 4-0 monocryl in a running subcuticular stitch. Fundal pressure was applied to express remaining intrauterine clots and debris. The patient tolerated the procedure well. Sponge, lap, and needle counts were correct times three per nursing. The patient was taken to the recovery room in stable condition. Specimen: Yes Estimated Blood Loss: 360 Urine Output: 250 Pathology: Yes Complications: No immediate complications Condition: Stable Disposition: Floor [place] Baby Date of : 02/03/25 Gestational Age by Date: 39 Infant gender: Male presentation: vertex position: Left Occiput Anterior Placenta delivery description: Expressed Cord Vessel Description: 2 Vessels and Delayed Cord Clamping
--- NOTE | 2025-02-03 14:39 | OBPPTRN ---
1120-Patient transferred to post room #279 via stretcher. Support person present. Oriented to unit, room, information board, rooming in, admission packet and security measures. Patient verbalizes understanding.
[2025-02-03] MEDS: KETOROLAC 15 MG/ML VIAL (*BKC) IV PUSH ×2 (14:59→20:55)
[2025-02-03] MEDS: SIMETHICONE 80 MG TAB.CHEW PO ×2 (15:01→17:57)
[2025-02-03] MEDS: DEXTROSE 5%/0.45% SOD CHL 1,000 ML 125 ML IV CONT (15:03)
[2025-02-03] MEDS: DEXTROSE 5%/0.45% SOD CHL 1,000 ML 125 ML (15:03)
[2025-02-03] MEDS: LIDOCAINE 5% PATCH 1 PATCH TRANSDERM (15:08)
[2025-02-03] MEDS: DOCUSATE SODIUM 100 MG CAPSULE PO (17:56)
[2025-02-03] MEDS: KCL 20 MEQ/D5/0.45% SOD CHL 1,000 ML 125 ML IV CONT (22:25)
[2025-02-04] MEDS: ACETAMINOPHEN 500 MG TABLET 1000 MG PO ×4 (03:09→20:18)
[2025-02-04] MEDS: KETOROLAC 15 MG/ML VIAL (*BKC) IV PUSH (03:09)
[2025-02-04] MEDS: oxyCODONE HCL (*CRX) 5 MG TAB IR PO ×2 (03:13→12:50)
[2025-02-04 05:19] LABS: Hematocrit 28.3 % (37.0-47.0); Hemoglobin 8.1 g/dL (12.0-15.0); Immature Granulocyte Percent A 0.8 % (0-0.5); Lymphocytes Absolute Auto 2.78 K/mm3 (0.9-3.2); Mean Corpuscular HGB Conc 28.6 g/dl (32-36); Mean Corpuscular Hemoglobin 26.8 pg (26-34); Mean Corpuscular Volume 93.7 fl (80-100); Nucleated Red Blood Cells Absolute Auto 0.000 K/mm3 (0.0-0.012); Nucleated Red Blood Cells Perc 0.0 % (0.0-0.2); Platelet Count Result 251 k/mm3 (150-375); Red Blood Count 3.02 M/mm3 (4.2-5.4); White Blood Count 9.8 K/mm3 (4.5-10.0)
[2025-02-04 08:14] VITALS: BP 109/67; PULSE 81; RESP 16; TEMP 36.7; O2SAT 100
[2025-02-04] MEDS: MULTIVIT/MIN/PREN/FOL AC/IRON TABLET 1 TAB PO (08:30)
[2025-02-04] MEDS: SIMETHICONE 80 MG TAB.CHEW PO ×3 (08:30→18:50)
[2025-02-04] MEDS: DOCUSATE SODIUM 100 MG CAPSULE PO ×2 (08:30→18:50)
[2025-02-04] MEDS: IBUPROFEN 600 MG TABLET PO ×3 (08:30→20:18)
--- NOTE | 2025-02-04 10:37 | P.PNOB_ITS ---
OB - PN: Subj Subjective Date/time seen: 02/04/25 10:37 Patient comments: no complaints, pain well controlled, tolerating diet and flatus present OB - PN: Obj Data Labs 02/04/25 04:40 Labs: Laboratory Results - last 24 hr 02/04/25 04:40 WBC 9.8 RBC 3.02 L Hgb 8.1 L Hct 28.3 L MCV 93.7 D MCH 26.8 MCHC 28.6 L RDW 14.7 H Plt Count 251 MPV 10.7 H Immature Gran % (Auto) 0.8 H Neut % (Auto) 63.3 Lymph % (Auto) 28.5 Cochran % (Auto) 6.6 Eos % (Auto) 0.3 Baso % (Auto) 0.5 Lymph # (Auto) 2.78 Cochran # (Auto) 0.6 Eos # (Auto) 0.0 Baso # (Auto) 0.1 Abs Immat Gran (auto) 0.08 H Absolute Neuts (auto) 6.2 Absolute Nucleated RBC 0.000 Nucleated RBC % 0.0 OB - PN A/P Plan day: 1 Comments: Post Op LTCS - no problems, routine recovery Time Spent With Patient Time: Total time spent is greater than 50% in coordination of care (as documented) at patient's floor/unit and/or counseling patient: Exam 2 Const: General: cooperative, healthy appearing, comfortable and no acute distress Resp: Auscultation: no crackles, no rales, no rhonchi and no wheezes Cardio: Rhythm: regular rhythm Heart sounds: no click and no murmurs GI: Inspection: non-distended Auscultation: normal bowel sounds Extrem: General: normal to inspection, no pedal edema and no calf tenderness
--- NOTE | 2025-02-04 13:20 | WPDANLDPN2 ---
Anes-Prog Note L&D Date/Time: 02/04/25 13:20 Comfortable throughout: section Neuraxial method: spinal Epidural/Spinal procedure site: clean & non-tender Neuro status: Neuro function grossly intact. Cardiovascular status: normal Respiratory status: normal Airway patency: baseline Mental status: baseline Post-Op hydration status: normal Vital Signs: Last Vital Signs Temp 36.7 C 02/04/25 08:14 Pulse 81 02/04/25 08:14 Resp 16 02/04/25 08:14 BP 109/67 02/04/25 08:14 Pulse Ox 100 02/04/25 08:14 O2 Del Method Room Air 02/04/25 08:30 Pain score (VAS): 2 I/O: Intake & Output 02/03/25 02/04/25 02/04/25 23:59 07:59 15:59 Intake Total 440 960 Output Total 950 300 450 Balance -510 660 -450 Post-procedural complaints: none Patient feedback: Patient satisfied with anesthetic care.
--- NOTE | 2025-02-04 13:20 | WPDANLDNPN2 ---
Anes-Prog Note L&D-Neuraxial Date/Time: 02/04/25 13:20 Neuraxial medications: intrathecal PF morphine Opiod-related complaints: none Patient feedback: Patient satisfied with post-operative pain management.
[2025-02-04 18:50] VITALS: BP 126/75; PULSE 91; RESP 18; TEMP 36.4; O2SAT 100
[2025-02-04] MEDS: oxyCODONE HCL (*CRX) 5 MG TAB IR 10 MG PO (21:50)
[2025-02-05] MEDS: ACETAMINOPHEN 500 MG TABLET 1000 MG PO ×2 (02:40→08:47)
[2025-02-05] MEDS: IBUPROFEN 600 MG TABLET PO ×2 (02:40→08:45)
[2025-02-05 08:45] VITALS: BP 130/70; PULSE 84; RESP 16; TEMP 36.7; O2SAT 100
[2025-02-05] MEDS: SIMETHICONE 80 MG TAB.CHEW PO (08:45)
[2025-02-05] MEDS: MULTIVIT/MIN/PREN/FOL AC/IRON TABLET 1 TAB PO (08:47)
[2025-02-05] MEDS: DOCUSATE SODIUM 100 MG CAPSULE PO (08:47)
--- NOTE | 2025-02-05 10:20 | P.PNOB_ITS ---
OB - PN: Subj Subjective Date/time seen: 02/05/25 10:20 Patient comments: no complaints, pain well controlled, incisional pain, tolerating diet and flatus present OB - PN: Obj Data Labs 02/04/25 04:40 OB - PN A/P Plan day: 2 Plan: routine care Comments: POD#2 LTCS - no problems, Time Spent With Patient Time: Total time spent is greater than 50% in coordination of care (as documented) at patient's floor/unit and/or counseling patient: Exam 2 Const: General: comfortable, no acute distress and alert Resp: Effort & Inspection: normal respiratory effort Auscultation: no crackles, no rales and no rhonchi Cardio: Rate: regular rate Heart sounds: no click, no murmurs and no rubs GI: Inspection: non-distended Auscultation: normal bowel sounds Other: Incision - CDI Extrem: General: normal to inspection, no pedal edema and no calf tenderness
--- NOTE | 2025-02-05 10:21 | P.DS_ITS ---
DS: Admitting Diagnosis Discharge Date 02/05/2025 Admitting Diagnosis Term DS: Discharge Diagnosis Discharge Diagnosis (1) Delivery by section: Status: Acute OB - DS: Summary OB Procedures : None OB Procedures Intrapartum: OB Procedures: : None Peripartum Data Procedures: Procedures Operation Date: 02/03/25 07:30 Actual Procedure Side Surgeon p Repeat Section Matty Muhammad MD Time Spent with Patient Time attestation: Total time spent providing and/or coordinating discharge services: DS: Data Data Completed and Pending Pending studies at discharge: Pending at discharge 02/03/25 09:03 Surgical [PTH] Routine Discharge Plan Discharge Discharging Clinician: Keon Spear Patient Disposition: Home Activity: pelvic rest Diet: regular Patient Instructions: Antibiotic Form Patient Language: Upper Sorbian Stand Alone Forms: General Discharge Information Follow-up/Referrals: Keon Spear MD [Physician] - Discharge Medications: New hydrocodone-acetaminophen 5-325 mg tablet 1 - 2 tablet PO Q6H PRN (Reason: pain) Qty: 25 0RF No Action PNV no.95-ferrous fumarate-FA [] 28 mg iron- 800 mcg tablet 1 tablet PO DAILY Date of admission: 02/03/25 05:22 Primary Care Provider: UNKNOWN,DOCTOR Admitting Provider: Keon Spear Attending physician on admission: Matty Muhammad Condition: Stable
[2025-02-08 09:28] VITALS: BP 124/75; PULSE 100; RESP 16; TEMP 37; O2SAT 100
== END 2025-02-05 13:50 | disposition home or self-care (01) | DRG 785 ==
LOC: ANHLDR 05:36 → ANHOB2 02-05 10:23 → ANHLDR 02-08 08:47
PROVIDERS: Obstetrics & Gynecology; Admitting Provider Obstetrics & Gynecology; Visit Provider Obstetrics & Gynecology
PROC: 10D00Z1 Extraction of Products of Conception, Low, Open Approach (ICD-10-PCS; CPT 59514; principal; 2025-02-03 07:30)
DX: O34.219 Maternal care for unspecified type scar from previous cesarean delivery (principal); O99.334 Smoking (tobacco) complicating childbirth; F17.210 Nicotine dependence, cigarettes, uncomplicated; Z3A.39 39 weeks gestation of pregnancy; Z37.0 Single live birth; Z30.2 Encounter for sterilization
CPT/HCPCS: 36415; 85025; 86593; 86850; 86900; 86901; 88302; J0690; A9270; J1100; J1885; J2274; J2371; J2405; J2590; J3480; J7120